=== PATIENT | male | born 1990 | race Caucasian/White ===

== ENCOUNTER 2024-05-16 13:29 | Outpatient (RCR) | payer OTHER, SELFPAY ==
--- NOTE | 2024-05-16 15:06 | OTOPEVDC ---
Assessment and note entered by Clem Mccain, OTR/Nora, CHT Evaluation Information Assessment Status Evaluation Subjective Information Patient referred for w/c evaluation. Diagnoses include EDS, generalized weakness, and osteoarthritis. Please refer to scanned mobility evaluation form for details. Reported Pain Level Pain Score 10: Self Report Assessment OT Clinical Summary Patient requires an ultra light weight wheelchair. Requiring seating and positioning not available on K1-K4 chairs, including cog adjustment for stability and adjustable axles for more functional reach of wheels. A manual wheelchair is necessary because this patient is unable to safely participate in or complete ADLs, household tasks, or household mobility activities in a timely manner with an optimally fitted cane or walker due to muscle weakness, pain, and fatigue. Without the use of a manual wheelchair the patient would be spending much of his day in bed, unable to have energy to take care of himself or household tasks . With a manual chair, he will be able to safely perform household mobility and participate in MRADLs. Patient is willing, able, and capable to use recommended equipment. With his history of EDS , he is prone for falls, joint dislocations, and further injury. This will further help prevent falls, injury, and further disability. Plan of Care OT Services Indicated No
== END 2024-05-16 15:38 | disposition home or self-care (01) ==
LOC: ANHGOSHOT 13:29
DX: Z46.89 Encounter for fitting and adjustment of other specified devices (principal); Q79.60 Ehlers-Danlos syndrome, unspecified; R53.1 Weakness; M15.8 Other polyosteoarthritis
CPT/HCPCS: 97167

== ENCOUNTER 2024-11-14 08:00 | Outpatient (RCR) | payer OTHER, SELFPAY ==
--- NOTE | 2024-10-19 15:23 | STOPEVAL1 ---
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 Patient also reports a history of PTSD between issues at home growing up and bullying related to his medical conditions. When asked about the term selective mutism, patient reports that there are times when patient freezes and cannot speak, unable to make voicing, and that he has no control over his vocal loudness , and as a result of the Tourette's, he makes uncontrollable noises, facial grimaces, and uses scripts such as repeated words and movie lines. Patient reports he has a difficult time talking through the strain on his vocal cords, and that over time in a conversation, his voice may or lose its loudness. Patient brought a tablet of some kind with him, he said to facilitate communication, however, he never used it during this session. Patient stated that Dr. Mai suggested Speech Therapy with the possibility of addressing the use of a speaking device or text to talk function for when his voice freezes. Patient's speech and voice were evaluated throughout this session and it was determined that patient must have felt comfortable sharing his struggles as he was able to maintain his voicing throughout this session. There were times when patient's vocal loudness mildly decreased and patient would point out that that was an example of his voice dying or losing the volume/strength however, he never did lose the ability to voice Therapist requested patient to sustain the ah sound and demonstrated the desired response; on four attempts, patient began an ah sound that averaged 74 decibels however, he could not sustain beyond one second as this triggered a cough reflex. Patient was able to count from 1-19 in seven seconds at 69 decibels, and then a cough reflex was triggered which stopped the task. Patient reached a high frequency, or hertz (hz), of 176 hz, and a low frequency of 83 hz. Neither range triggered a loss of voice or a cough. Patient orally read a story at 71 decibels, average loudness, with a frequency range of 81-108 hz. Based on patient's description of freezing when speaking to groups or authority figures, and his triggering of the cough reflex when voluntarily trying to make himself perform, direct Speech Therapy is suggested to address strategies to work through voicing when in unfamiliar, group, or stressful situations. He will be seen twice weekly for two weeks for instruction and use of voicing/ speaking strategies in structured situations mimicking situations of concern. During these sessions, use of a text to talk device will be discussed. Thank you for this referral. Plan of Care Interventions Treatment of Voice ST Services Indicated Yes Treatment Frequency and 2xwk/4 visits Duration These treatments will address the objective and functional deficits as defined above. The patient will be advanced safely and appropriately in order for the patient to progress towards his/her prior level of function. Additional exercises will be introduced and as well as a comprehensive home exercise program upon discharge, if needed, ?to ensure carryover of functional gains achieved in the clinic. This treatment plan has been reviewed and agreement upon by the patient.
--- NOTE | 2024-11-14 09:56 | STOPDC ---
Assessment and note entered by Kasey Garcia MUSIC GRAPHER Evaluation Information Assessment Status Discharge Reported Pain Level Pain Score 0: Self Report Assessment ST Clinical Summary DISCHARGE SUMMARY AND TREATMENT SUMMARY This patient has been seen for four visits of Speech Therapy with focus on improving both voicing and regulating vocal loudness. Initially patient reported that he has selective mutism, that it is difficult for him to speak in front of strangers, but he also reported that when he speaks, speaking triggers tics, facial and head movements and involuntary sounds and words secondary to diagnosis of Tourette Syndrome. 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 and therefore wears glasses that reduce his sensitivity to the lights in the therapy room. During our sessions, patient was instructed in the use of a vocal hygiene program to eliminate any negative behaviors affecting his voice but also to encourage positive behaviors such as increased intake of water and use of humidifier. Patient indicated that he noted the areas of weakness and has worked at improving them, including increasing hydration, reducing loud singing with vocal noises that can irritate the throat, and reducing whispering as a way to save his voice. He was instructed in use of relaxation and breathing techniques to use in home program but also to incorporate an easy breathing method when stressed in order to reduce tension in the vocal cords and whole body. He voiced understanding and also has incorporated those techniques into his daily activities. Finally, he was instructed in the use of laryngeal adduction strengthening exercises to improve the strength and vocal quality of the voice without overdoing it and straining/fatiguing the voice. He also has incorporated these into his routine but stated one particular exercise triggers a tic; therapist requested him to discontinue that particular exercise. Last session, patient demonstrated how typing his thoughts on a mandel pad connected to blue CISSOID that printed the words onto a phone with a black screen and white print without speaking or making eye contact with therapist not only reduced but eliminated any form of tic including head movement, nonverbal noises, and involuntary speech /curse words. Patient typed several pages of information independently and in response to therapist's questions with none of the above- mentioned behaviors present. Today patient participated in tasks to simulate interaction with others however verbally, tics remained present and several were triggered for no apparent reason (i.e. not directly due to eye contact, the use of /f/ in words, or stressful conversation). TREATMENT SUMMARY 11/14: Throughout our sessions, it has become obvious that when patient is speaking, certain sound productions, words, and movements trigger patient to jerk his head to the side. The main sound that was very consistent was when patient or therapist used the /f/ sound in a word. Additionally, when therapist was attempting to teach the patient the yawn-sigh technique to reduce vocal and temporo- mandibular tension this date, therapist's yawn immediately triggered patient's head to jerk to the side. Patient admitted to much TMJ tension and also stated that when he attempts to yawn, head movement is triggered. Patient showed therapist a speaking device, the Mobile Accord Lightwriter SL50, that looks like a mini-typewriter that uses type-to- speech using an e-ink screen which does not trigger Tourette symptoms. Patient would type sentences or paragraphs and then press a button and the device would speak the information aloud. Patient's own phone does not have this capability. Therapist is going to request patient's physician write a script for this device and pursue obtaining the device for the patient as both last session and today's session there was an obvious decrease in tics and other perceived negative behaviors when the patient was typing. Patient is being discharged from skilled Speech Therapy at this time with voicing goals achieved. Plan of Care ST Services Indicated No
--- NOTE | 2024-11-14 13:02 | OPREHPOC ---
Outpatient Therapy Plan of Care This is a Multidisciplinary Plan of Care that may contain components documented by all disciplines (PT, OT, and ST.) ST Problem 1 ST Problem #[address] Goal 1 Goal / Goal Update 1. Patient will voice and demonstrate understanding of anatomy and physiology related to voicing and communication impairment, treatment plan, home exercise program, compensatory programs , and risks and benefits related to direct Speech Therapy tasks. MET. Target Visit [address] Problem [address] ST Problem #[address] Goal 1 Goal / Goal Update 1. Patient will voice good understanding of vocal hygiene program and tasks to increase the strength of the voice without abusing the voice. MET. 2. Patient will participate in tasks to increase the strength of the voice while maintaining appropriate use of the vocal cords while avoiding over-use or abusive voice behaviors 90% of the time. MET. 3. Patient will participate in role-playing tasks to trigger loss of voice yet use strategies to maintain voicing 70% of the time. MET. Target Visit [address] Goal 2 Goal / Goal Update 1
== END 2024-11-16 10:45 | disposition home or self-care (01) ==
LOC: ANHST 08:00
PROVIDERS: PCP Internal Medicine; Visit Provider Internal Medicine
DX: F94.0 Selective mutism (principal); F95.2 Tourette's disorder
CPT/HCPCS: 92507; 92522

== ENCOUNTER 2024-12-13 11:17 | Emergency (ER) | payer OTHER, SELFPAY ==
--- NOTE | ~2024-12-13 | CT_ITS ---
EXAMINATION: CTA chest abdomen pelvis DATE: 12/13/2024 17:49 INDICATION: Chest pain, hx of ehlos danlos . TECHNIQUE: Computed tomography angiography of the chest, abdomen, and pelvis was performed with 100 m L Omnipaque-350 intravenous contrast in the arterial phase. Automated exposure control and iterative reconstruction technique were employed. The dose-length product was 2001.41 mGy-cm. COMPARISON: X-ray chest, same date FINDINGS: CHEST: Thoracic aorta: No significant dilation. No dissection. Lung parenchyma and airways: Lungs and airways are clear. Thoracic inlet, axillae and chest wall: No thyroid or soft tissue mass. No axillary lymphadenopathy. Mediastinum: No mass or lymphadenopathy. Heart and pericardium: Normal heart size. No pericardial effusion. Coronary artery calcifications: Mild. Pleura: No effusion or mass. Thoracic bones: No acute osseous finding in the chest. ABDOMEN/PELVIS: Liver: Right and left lobe subcentimeter hypodensities likely representing cysts or hemangiomas. Biliary/Gallbladder: Gallbladder is normal. No bile duct dilation. Pancreas: No mass or duct dilation. Spleen: Normal. Adrenals:No mass. Kidneys: No suspicious mass, obstructing stone, or hydronephrosis. GI tract: No small or large bowel dilation. Normal appendix. Diverticulosis without diverticulitis. Mesentery/Peritoneum: No ascites, mass, or free air. Retroperitoneum: No mass . No aneurysm, dissection, or severe branch vessel stenosis. Pelvis: Pelvic organs are within normal limits Soft Tissues: Soft tissues and body wall unremarkable. Abdominopelvic bones: No acute osseous finding in the abdomen/pelvis. Multilevel lumbar degenerative disc disease, severe at L5-S1. Severe right L5-S1 neural foraminal narrowing secondary to degenerati ve changes. Moderate central canal narrowing at L3-4 secondary to degenerative changes. IMPRESSION: No acute finding in the chest, abdomen, or pelvis. Reviewed, dictated and finalized at location K. UCT TESTER F[employer]ERGL[employer]
--- NOTE | ~2024-12-13 | XR_ITS ---
EXAMINATION: XR chest 2V DATE: 12/13/2024 12:58 INDICATION: Chest pain. Shortness of breath. TECHNIQUE: Frontal and lateral views of the chest were obtained. COMPARISON: None. FINDINGS: There is no pneumonia, pleural effusion, or pneumothorax. The heart size is normal. IMPRESSION: 1. No acute cardiopulmonary disease. Reviewed, dictated and finalized at location A. TEACHER
[2024-12-13 11:21] VITALS: BP 157/95; PULSE 109; RESP 20; TEMP 36.4; O2SAT 96
--- NOTE | 2024-12-13 11:25 | ECG_ITS ---
Test Date: 2024-12-13 11:28:58 Measurements Intervals [place] Rate: 99 P: 49 MD: 160 QRS: 21 QRSD: 91 T: 33 QT: 329 QTc: 424 Interpretive Statements SINUS RHYTHM NONSPECIFIC T-WAVE ABNORMALITY No previous ECG available for comparison Electronically Signed On 12-13-2024 16:09:12 GOLF CART MAKER by Loly Howard M.D.
[2024-12-13 11:40] LABS: Basophils Absolute Auto 0.1 K/mm3 (0.0-0.1); Basophils Percent Auto 0.7 % (0.2-1.2); Eosinophils Absolute Auto 0.2 K/mm3 (0-0.3); Eosinophils Percent Auto 2.8 % (0-4.4); Hematocrit 48.9 % (42.0-52.0); Hemoglobin 17.4 g/dL (14.0-18.0); Immature Granulocyte Absolute 0.02 K/mm3 (0.00-0.031); Immature Granulocyte Percent A 0.3 % (0-0.5); Lymphocytes Absolute Auto 2.13 K/mm3 (0.9-3.2); Lymphocytes Percent Auto 30.1 % (18.3-44.2); Mean Corpuscular HGB Conc 35.6 g/dl (32-36); Mean Corpuscular Hemoglobin 30.4 pg (26-34); Mean Corpuscular Volume 85.3 fl (80-100); Mean Platelet Volume 11.1 fl (7.4-10.4); Monocytes Absolute Auto 0.7 K/mm3 (0.1-0.6); Monocytes Percent Auto 9.3 % (2.6-8.5); Neutrophils Percent Auto 56.8 % (45.5-73.1); Platelet Count Result 222 k/mm3 (150-375); Red Blood Count 5.73 M/mm3 (4.6-6.20); Red Cell Distribution Width 14.5 % (11.5-14.5); White Blood Count 7.1 K/mm3 (4.5-10.0)
[2024-12-13 11:52] LABS: Alanine Aminotransferase 49 U/L (6-50); Albumin Level 4.6 g/dL (3.5-5.1); Alkaline Phosphatase 125 U/L (38-126); Anion Gap 13 mmol/L (4-12); Aspartate Amino Transferase 37 U/L (17-59); Bilirubin,Total 0.7 mg/dL (0.2-1.3); Blood Urea Nitrogen 8 mg/dL (9-20); Calcium 8.7 mg/dL (8.4-10.2); Carbon Dioxide 18 mmol/L (22-30); Chloride 108 mmol/L (98-107); Estimated CRCL calculation 164 ml/min; Estimated Glomerular Filt Rate > 60; Glucose 109 mg/dL (65-110); Lipase 43 U/L (23-300); Sodium 139 mmol/L (137-145)
[2024-12-13 12:02] LABS: Prothrombin Time 13.8 Seconds (11.1-14.7)
[2024-12-13 12:03] LABS: Partial Thromboplastin Time 22.7 Seconds (22.3-36.8); Troponin I < 0.012 ng/mL (0.000-0.034)
--- OUTSIDE RECORDS SUMMARY | 2024-12-13 12:37 | XMS_ITS ---
Author Organization [facility] Address [address] [place] [address] Care Team Providers Care Panel Installer Name Role Phone Danie Mai Primary Care Provider [phone] REASON FOR VISIT Tele visit Social History Sex Assigned At : Social History Observation Description Sex Assigned At Male Encounters Encounter Location Date Provider Diagnosis [address] [place] [address] 11/20/2024 Danie Mai Plan Of Treatment No Information Progress Notes * ESDRASMichelOB:[birth year] (34 yo M)Acc No.[id number]:11/20/2024 Patient:?Noble DEWITT :1990???Age:34 Y???Sex:Male Address:[address], [place], [address] * true * Date:? 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
--- OUTSIDE RECORDS SUMMARY | 2024-12-13 12:38 | XMS_ITS | Encounter Summary ---
[facility] Address [address] [place] [address] Phone Care Team Providers Care Drafter Detail Name Role Phone Ab Erwin MD Primary Care Provider + Álvaro Angelo MD Primary Care Provider [phone] Unknown, Notinfile Primary Care Provider Unavail able Encounter Details Date Type Department Care Team (Late st Contact Info) Description 02/01/2023 Orders Only [facility] [address] [place] [address] Scanning, Provider Social History Tobacco Use Types Packs/Day Years Used Date Smoking Tobacco: Never Assessed Sex and Gender Information Value Date Recorded Sex Assigned at Not on file Legal Sex Male 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 Gender Identity Not on file Sexual Orientation Not on file documented as of this encounter Plan of Treatment Not on file documented as of this encounter Procedures Procedure Name Priority Date/Time Associated Diagnosis Comments SCAN - LABS 02/01/2023 documented in this encounter Results * SCAN - LABS (02/01/2023) us Provider Scanning Final Result documented in this encounter Visit Diagnoses Not on filedocumented in this encounter Care Teams Drafter Detail Relationship Specialty Start Date End Date Ab Erwin MD PCP - General Otolaryngology 09/02/17 03/11/23 Álvaro Angelo MD PCP - General Internal Medicine 03/12/23 08/29/24 Unknown, Notinfile PCP - General 11/21/24 documented as of this encounter
--- OUTSIDE RECORDS SUMMARY | 2024-12-13 12:38 | XMS_ITS | Clinical Summary ---
Author Organization [facility] Address [address] [place] [address] Phone Care Team Providers Care Outside Laborer Name Role Phone Unavailable Primary Care Provider Unavailabl e Allergies Active Allergy Reactions Criticality Noted Date Comments Clarithromycin Hives High 11/09/2019 Medications flu vaccine quadrivalent 2019-, 6 mo+,,PF, (Flulaval Quad , PF,) 60 mcg (15 mcg x 4)/0.5 mL Syringe syringe TO BE ADMINISTERED BY PHARMACIST. 0.5 mL 0 9:08 AM CDT 09/14/20 20 Active lithium carbonate (ESKALITH IR) 600 mg Capsule Take 1 Capsule (600 mg) by mouth 2 times daily. 60 Capsule 09/17/20 20 Active lithium carbonate (ESKALITH IR) 300 mg Capsule Take 1 capsule (300 mg) by mouth in the morning and 2 capsules (600 mg) daily at bedtime. 90 Capsule 0 9:29 AM AUTOMOBILE AND PROPERTY UNDERWRITER 10/30/20 20 Active busPIRone (BUSPAR) 15 mg Tablet Take 15 mg by mouth 2 times daily. Active testosterone enanthate (Xyosted) 100 mg/0.5 mL Auto-Injector Inject 100 mg by subcutaneous injection every 7 days in the morning 6 mL 2 1 2:35 PM CDT 01/03/20 21 Active cyanocobalamin (VITAMIN B-12) 1,000 mcg/mL Solution Inject 1 mL (1,000 mcg) subcutaneously every 7 days in the morning. 4 mL 2 1 4:21 PM CDT 04/21/20 21 Active hydrOXYzine pamoate (VISTARIL) 25 mg capsule Take 1 Capsule (25 mg) by mouth 2 times daily as needed. 60 Capsule 1 4:51 PM CDT 05/22/20 21 Active busPIRone (BUSPAR) 15 mg Tablet Take 1 Tablet (15 mg) by mouth daily. 90 Tablet 1 2:35 PM CDT 06/12/20 21 Active hydrOXYzine pamoate (VISTARIL) 25 mg capsule Take 1 Capsule (25 mg) by mouth 2 times daily as needed. 60 Capsule 1 2:35 PM CDT 06/12/20 21 Active testosterone enanthate (Xyosted) 50 mg/0.5 mL Auto-Injector Inject 50 mg by subcutaneous injection on weeks 2 and 4 of each month along with Xyosted 100mg to make total of 150mg on weeks 2 and 4. 2 mL 2 1 12:19 PM CDT 06/17/20 21 Active testosterone enanthate (Xyosted) 100 mg/0.5 mL Auto-Injector Inject 100 mg by subcutaneous injection every 7 days. (Weeks 1and 3 inject 100mg and weeks 2 and 4 inject 100mg along with Xysted 50mg). 6 mL 1 1 12:19 PM CDT 06/17/20 21 Active FLUoxetine (PROzac) 40 mg capsule Take 1 Capsule (40 mg) by mouth daily. 30 Capsule 1 12:19 PM CDT 07/22/20 21 Active testosterone enanthate (Xyosted) 50 mg/0.5 mL Auto-Injector Inject 50 mg by subcutaneous injection along with Xyosted 100mg to make total of 150mg every week. 6 mL 1 1 4:20 PM CDT 06/17/20 21 Active Syringe with Needle, Disp, (BD Luer-Nick Syringe) 3 mL 25 gauge x 1 Syringe To inject testosterone once weekly. 12 Each 2 10/02/20 Active Needle, Disp, 18 G (Disposable Huguenot) 18 gauge x 1 Needle To withdraw testosteroe once weekly. 12 Each 1 10/02/20 21 Active Syringe with Needle, Disp, 3 mL 25 gauge x 1 Syringe Use to inject testosterone once weekly. 12 Each 2 11/11/20 21 Active Insulin Syringe-Needle U-100 1 mL 31 gauge x 03/30 Syringe USE TO INJECT B12 ONCE WEEKLY. 12 Each 1 11/11/20 Active Needle, Disp, 18 G (Disposable Huguenot) 18 gauge x 1 Needle Use to withdraw testosterone once weekly. 12 Each 1 11/11/20 21 Active amLODIPine (NORVASC) 5 mg tablet Take 1 Tablet (5 mg) by mouth daily. 30 Tablet 5 04/21/20 22 Active famotidine (PEPCID) 20 mg tablet Take 1 Tablet (20 mg) by mouth daily. 60 Tablet 5 04/21/20 22 Active Active Problems Patient Care Coordination No te Formatting of this note migh t be different from the original. DME: [facility] Fax#: [phone] Problem Noted Date Diagnosed Date Morbid obesity with body mass index of 40.0-49.9 08/28/2020 Immunizations Immunization Administration Dates Next Due (IntegralReach)(12 YR UP) COVID-19 VACCINE - EMERGENCY USE AUTHORIZATION, MRNA, [id number](PF) 30 MCG/0.3 ML IM SUSP 11/27/2020,11/06/2020 INFLUENZA VACCINE QUADRIVALE NT 3 YR UP PF IM 09/14/2020 Influenza Seasonal Unspecifi ed Formulation IM 09/14/2020,09/14/2019,08/29/2019 Family History Medical History Relation Name Comments Arthritis-rheumatoid Father Heart Disease Father COPD Maternal Grandfather Lung Cancer Maternal Grandfather COPD Maternal Grandmother Bipolar Disorder Mother Hypertension Mother Heart Disease Paternal Grandfather COPD Paternal Grandmother Relation Name Status Comments Father Alive Maternal Grandfather Maternal Grandmother Mother Alive Paternal Grandfather Paternal Grandmother Social History Tobacco Use Types Packs/Day Years Used Date Smoking Tobacco: Never Smokeless Tobacco: Never Alcohol Use Standard Drinks/Week Comments Never 0 (1 standard drink = 0.6 oz pur e alcohol) Sex and Gender Information Value Date Recorded Sex Assigned at Not on file Legal Sex Male 4:09 PM CDT Gender Identity Not on file Sexual Orientation Not on file Last Filed Vital Signs Vital Sign Reading Time Taken Comments Blood Pressure 136/78 12/25/2020 8:26 AM AUTOMOBILE AND PROPERTY UNDERWRITER Pulse 80 12/25/2020 8:26 AM AUTOMOBILE AND PROPERTY UNDERWRITER Temperature 36.2 ??C (97.2 ??F) 12/25/2020 8:26 AM CS T Respiratory Rate 16 12/04/2020 2:41 PM AUTOMOBILE AND PROPERTY UNDERWRITER Oxygen Saturation 96% 08/28/2020 3:25 PM CDT Inhaled Oxygen Concentration - - Weight 161 kg (355 lb) 12/04/2020 2:41 PM AUTOMOBILE AND PROPERTY UNDERWRITER Height 198.1 cm (6' 6 ) 12/04/2020 2:41 PM AUTOMOBILE AND PROPERTY UNDERWRITER Body Mass Index 41.02 12/04/2020 2:41 PM AUTOMOBILE AND PROPERTY UNDERWRITER Plan of Treatment Health Maintenance Due Date Last Done Comments DTAP/TDAP/TD VACCINES (1 - Tdap) 2007 HEPATITIS B VACCINES (1 of 3 - 19+ 3-dose series) 2007 Pre-Diabetes and Diabetes Screening 07/12/2023 07/12/2020 INFLUENZA VACCINE (#1) 2024 0, 09/14/2020, 08/20/2020, Additional history exists COVID-19 Vaccine ( season) 2024 11/27/2020, 11/06/2020 HPV VACCINES Aged Out No longer eligi ble based on patient's age to complete this topic Procedures Procedure Name Priority Date/Time Associated Diagnosis Comments HEMOGLOBIN A1C Routine 07/12/2020 7:23 AM CDT 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 [facility] EST. AVG GLUCOSE, A1C 105 mg/dL 07/12/2020 8:43 AM CDT [facility] [employer] [facility] Blood Venipuncture / Unknown 07/12/2020 7:23 AM CDT 07/12/2020 7:23 AM CDT Narrative [facility] [employer] [facility] - 07/12/2020 8:43 AM CDT HGB A1C INTERPRETATION NORMAL: ? <5.7% PRE-DIABETES: 5.7 - 6.4% DIABETES: ? 6.5% OR GREATER us Aydin Cortez MD CHEMISTRY ORDERABLES Final Resu lt [facility] CLIA# [id number] [place] [address] from Last 3 Months or Most Recently Relevant to Health Maintenance Insurance [facility] MEDICAID RX CANALES PLANS (INTERNAL) [facility] RX [employer] Commercial RX [facility]
--- OUTSIDE RECORDS SUMMARY | 2024-12-13 12:38 | XMS_ITS | Clinical Summary ---
Author Organization [facility] Address [address] [place] [address]. [place], [place] [address] [place] [address] Care Team Providers Care Wardsperson Name Role Phone Unavailable Primary Care Provider Unavailabl e Allergies Active Allergy Reactions Criticality Noted Date Comments Clarithromycin Hives 11/09/2019 Medications busPIRone 30 MG tablet buspirone 30 mg tablet Active [place] Carbonate 600 MG Cap lithium carbonate 600 mg capsule 0 Active hydrOXYzine 25 MG capsule hydroxyzine pamoate 25 mg capsule Active buPROPion XL 150 MG 24 hr tabletIndication s:Generalized anxiety disorder Take 1 tablet (150 mg total) by mouth daily. 90 tablet 1 1 Active amLODIPine 10 MG tabletIndication s:Essential hypertension Take 1 tablet (10 mg total) by mouth daily. 90 tablet 1 1 Active metoprolol tartrate 25 MG tabletIndication s:Essential hypertension Take 1 tablet (25 mg total) by mouth 2 (two) times daily. 60 tablet 3 1 Active Active Problems Problem Noted Date Diagnosed Date Morbid obesity with body mas s index of 40.0-49.9 (CMS/HCC HHS/HCC) 12/24/2020 Overview (12/24/2020): -Pt has elevated weight with BMI Body mass index is 42.24 kg/m??., and will need to work hard on reducing carbohydrates and total calories. -You may use the free smart phone apps such as [employer] to help track calories and try to reduce by 15% every 4 weeks. -Patient will work on reducing total portion sizes to try to reduce the size of their stomach. -Exercising about 30 minutes every day with cardio work outs. -Avoid regular soda, juices and alcohol. -Recommended limiting GPS foods (Grains, Potatoes, Sugars) as much as possible. Eating food that it is not highly processed and that they can recognize. Eating when they are hungry and not by a time schedule. -Lets aim to have them lose about 1 pound per week and 5 pounds per month. Schizophrenia ([facility]) 12/10/2020 Overview (12/24/2020): -Currently very concerned about possibly having [place]'s disease -Continue with lithium -Follow-up with your psychologist for future appointments Anxiety 12/10/2020 KAILA on CPAP 12/10/2020 Essential hypertension 12/10/2020 Chronic back pain 12/10/2020 Resolved Problems Problem Noted Date Diagnosed Date Resolved Date Hypogonadism in male 02/15/2019 021 Immunizations Name Administration Dates Next Due Dtap (Generic) 07/11/2019 Influenza (Generic) 09/14/2019,08/29/2019 Influenza Adult (Generic) 09/14/2020 PFIZER COVID-19 (ORIGINAL FO RMULATION, PURPLE CAP) mRNA, LNP-S, PF, 30 MCG/0.3 ML DOSE 11/27/2020,11/06/2020 Family History Medical History Relation Comments afib Father ocd Father bipolar Maternal Aunt COPD Maternal Grandfather Lung Cancer Maternal Grandmother Breast Cancer Mother breast bipolar Mother Heart Disease Paternal Grandfather Diabetes Paternal Grandmother Lung Cancer Paternal Grandmother Relation Status Comments Father Alive Maternal Aunt Alive Maternal Grandfather Maternal Grandmother Mother Alive Paternal Grandfather Paternal Grandmother Social History Tobacco Use Types Packs/Day Years Used Date Smoking Tobacco: Never Smokeless Tobacco: Never Tobacco Cessation:Counseling Given: Yes Comments:Dr Alanis Alcohol Use Standard Drinks/Week Comments Yes 0 (1 standard drink = 0.6 oz pur e alcohol) socially AUDIT-C Answer Date Recorded Frequency of Alcohol Consumption Not on file 12/10/2020 Q2: How many drinks containi ng alcohol do you have on a typical day when you are drinking? 1 or 2 12/10/2020 Frequency of Binge Drinking Not on file 11/16 PHQ-2 Answer Date Recorded PHQ-2 Score - If the patient scores above 3, please move on to questions 3-9 0 12/10/2020 Sex and Gender Information Value Date Recorded Sex Assigned at Not on file Legal Sex Male 11:09 AM CDT Gender Identity Not on file Sexual Orientation Not on file Last Filed Vital Signs Vital Sign Reading Time Taken Comments Blood Pressure 140/90 12/24/2020 11:19 AM [employer] Pulse 87 12/24/2020 10:42 AM [employer] Temperature 37.1 ??C (98.7 ??F) 12/24/2020 10:[address] Respiratory Rate 18 12/24/2020 10:42 AM [employer] Oxygen Saturation 99% 12/24/2020 10:42 AM [employer] Inhaled Oxygen Concentration - - Weight 157.4 kg (347 lb) 12/24/2020 10:42 AM [employer] Height 193 cm (6' 4 ) 12/24/2020 10:42 AM [employer] Body Mass Index 42.24 12/24/2020 10:42 AM [employer] Plan of Treatment Health Maintenance Due Date Last Done Comments Annual Physical 1991 PHQ-2 (Physician [place]) 2000 Hepatitis B Vaccines (1 of 3 - 19+ 3-dose series) 2007 COVID-19 Vaccine ( - 2023-2 5 season) 2024 11/27/2020, 11/06/2020 Influenza Adult (#1) 2024 09/14/2020, 09/14/2019, 08/29/2019 PHQ-2 (Physician [place]) 11/15/2024 DTaP, Tdap and Td Vaccines ( 2 - Tdap) 07/11/2029 07/11/2019 Hepatitis C Completed 12/10/2020 HPV Vaccines Aged Out No longer eligi ble based on patient's age to complete this topic Meningococcal B Vaccine Aged Out No l onger eligible based on patient's age to complete this topic Meningococcal Vaccine Aged Out No paola walter eligible based on patient's age to complete this topic Pneumococcal Vaccine: Pediatrics (0 to 5 Years) and At-Risk Patients (6 to 64 Years) Aged Out No longer eligible b ased on patient's age to complete this topic RSV Immunizations Under 20 Months Aged Out No longer eligible b ased on patient's age to complete this topic Procedures Procedure Name Priority Date/Time Associated Diagnosis Comments HEPATITIS C ANTIBODY Routine 12/10/2020 9:09 AM [employer] Need for hepatitis C screening test from Last 3 Months or Most Recently Relevant to Health Maintenance Results * HEPATITIS C ANTIBODY (12/10/2020 9:09 AM [employer]) HEPATITIS C AB NON-REACTI VE NON-REACT TREMAINE 12/10/2020 9:32 PM [employer] [facility] Comment: ANTIBODIES TO HCV NOT DETECTED. DOES NOT EXCLUDE THE POSSIBILITY OF EXPOSURE TO HCV. 12/10/2020 9:09 AM [employer] Ramila Alanis MD LABORATORY Final Result [facility] [address] [place] [address], [place] [phone] [id number] from Last 3 Months or Most Recently Relevant to Health Maintenance [place] [place] [address] [facility]
--- OUTSIDE RECORDS SUMMARY | 2024-12-13 12:38 | XMS_ITS | Patient Health Record ---
Author Organization [facility] Address [address] [facility] [place] [address] [place] [address] Care Team Providers Care Associate Field Service Engineer Name Role Phone GURMEET MARQUEZ Primary Care Provider Aydin Tesfaye Unavailable [phone] Allergies Allergen (clinical drug ingredient) Drug/Non Drug Allergy documented on EMR Reaction Allergy Type Onset Date Status BIAXIN (uncoded) Unknown Allergy Act nilam Gluten Gluten Unknown Allergy Active Reason For Referral No Information Medications Medication SIG (Take, Route, Frequency, Duration) Notes Start Date End Date Status Ibuprofen 800 MG 1 tab(s) orally PRN Unknown busPIRone HCl 30 MG 1 tab(s) orally 2 times a day for 30 day(s) Unknown BD SYRINGE LUER LOCK 1CC 18G - TO DRAW INJECTION NA ONCE A WEEK for 90 DAYS *Please review for potential replacement for e-prescription and drug interaction check* 10/05/2019 Unknown BD SYRINGE 3CC 25G 1 - TO INJECT IM ONCE A WEEK *Please review for potential replacement for e-prescription and drug interaction check* 10/05/2019 Unknown amLODIPine Besylate 5 MG 1 tab(s) orally once a day for 30 day(s) Unknown Bromocriptine Mesylate 5 MG 2 TABS ORALLY QD for 90 DAYS *Please review and pick correct strength-formulati on from Medispan options. If intended option is not shown, discontinue and re-order from Quick Search* Active [place] Carbonate 300 MG 1 cap(s) orally Unknown Latuda 80 MG 1 tab(s) orally once a day Unknown Social History Tobacco Use: Social History Observation Description Date Details (start date - stop date) Never Smoker NA - NA TU Question Answer Notes Are you a smoker never smoker Problems Problem Type SNOMED Code ICD Code Onset Dates Problem Status W/U Status Risk Notes Problem Hyperprolactinemia (906296501) Hyperprolactinemia (E22.1) Active confirmed Problem Adverse effect o f unspecified antipsychotics and neuroleptics, initial encounter (T43.505A) Active confirmed Problem Avitaminosis D (61152695) Avitaminosis D (E55.9) Active confirmed Problem Male hypogonadism (83044293) Hypogonadism in male (E29.1) Active confirmed Problem Lipid screening (445653042) Lipid screening (Z13.220) Active confirmed Problem Diabetes mellitus screening (958882889) Screening for diabetes mellitus (Z13.1) Active confirmed Plan Of Treatment Pending Test Test Name Order Date CORTISOL, LC/MS/MS, Saliva, 4 SAMPLES Insurance Providers Payer Name Payer Address Payer Phone Subscriber Number Group Number Insured Name Patient Relationship to Insured Coverage Start Date Coverage End Date [facility] [address] [place] [address] [id number] ROSA DEWITT Self - patient is the insured Medical (General) History Medical History History ICD Code Hypogonadism Schizophrenia Surgical History Surgery Date(Month/Year) Instillation of dilating eye drops to ey e Biopsy of liver Nasal septoplasty Tubes/Ears Hospitalization History Reason Date(Month/Year) See surgical history 4 months after for asthma
--- OUTSIDE RECORDS SUMMARY | 2024-12-13 12:38 | XMS_ITS ---
Author Organization [facility] Address [address] [place] [address] Care Team Providers Care Customer Solutions Representative Name Role Phone Danie Mai Primary Care Provider REASON FOR VISIT Speech Device Social History Sex Assigned At : Social History Observation Description Sex Assigned At Male Encounters Encounter Location Date Provider Diagnosis [address] [place] [address] 11/28/2024 Danie Mai Plan Of Treatment No Information Progress Notes * ESDRASMichelOB:[birth year] (34 yo M)Acc No.[id number]:11/28/2024 Patient:?Noble DEWITT :1990???Age:34 Y???Sex:Male Address:[address], [place], [address] * true * Date:? 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
--- OUTSIDE RECORDS SUMMARY | 2024-12-13 12:38 | XMS_ITS ---
Author Organization [facility] Address [address] [place] [address] Care Team Providers Care Algology Teacher Name Role Phone Danie Mai Primary Care Provider [phone] REASON FOR VISIT follow up Social History Sex Assigned At : Social History Observation Description Sex Assigned At Male Encounters Encounter Location Date Provider Diagnosis [address] [place] [address] 11/20/2024 Danie Mai Plan Of Treatment No Information Progress Notes * Michel DEWITTOB:[birth year] (34 yo M)Acc No.[id number]:11/20/2024 UNLOCKED PROGRESS NOTE Progress Notes Patient:?Noble DEWITT Provider:?Danie Mai :1990???Age:34 Y???Sex:Male Adarsh e:11/20/2024 [address] [facility] Subjective: * Chief Complaints: * ???1. Follow up. * Medical History:? Objective: * Vitals:? Assessment: Plan: * Treatment: * * Electronic signature of Constantine Mai , [id number] on 12/13/2024 at 12:37 PM CUSTOM FEED MILL OPERATOR Sign off status: Pending * Provider:?Danie Mai Date:? Generated for Kiara carlton/[employer]/eTransmitting on:?12/13/2024 12:37 PM CUSTOM FEED MILL OPERATOR
--- OUTSIDE RECORDS SUMMARY | 2024-12-13 12:39 | XMS_ITS | Clinical Summary ---
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 Name Role Phone Unknown, Notinfile Primary Care Provider Unavail able Allergies Active Allergy Reactions Criticality Noted Date Comments Biotin Diarrhea Low 03/16/2023 Clarithromycin Hives High 08/09/2012 Flu Vac,Qval 2013-14 (2-49yrs) Flushing (skin) High 03/16/2023 Haemophilus Influenzae Type B Swelling High 2011 Nsaids (Non-Steroidal Anti-Inflammatory Drug) Shortness of breath High 06/12/2013 Other Shortness of breath High 11/18/2013 [place] Kristen Medications ketotifen (ZADITOR) 0.025 % ophthalmic solutionIndication s:Allergic Conjunctivitis Administer 1 drop into both eyes 2 (two) times a day 5 mL 05/05/20 23 Active hydrOXYzine (VISTARIL) 50 mg capsule Take 1 capsule (50 mg total) by mouth 4 (four) times a day as needed for itching 120 capsule 3 12/03/19 24 Active famotidine (PEPCID) 20 mg tablet Take 1 tablet (20 mg total) by mouth as needed 04/21/20 22 Active amLODIPine (NORVASC) 5 mg tablet TAKE ONE TABLET BY MOUTH EVERY 90 tablet 1 04/04/20 24 Active Additional Information Patient not taking.Reported on 07/25/2024 testosterone cypionate (DEPO-TESTOTERONE) 200 mg/mL injection Inject 1 mL (200 mg total) into the muscle as instructed every 28 (twenty-eight) days 1 mL 3 04/07/20 24 Active Additional Information Patient not taking.Reported on 08/24/2024 bromocriptine (PARLODEL) 5 mg capsule Take 1 capsule (5 mg total) by mouth 2 (two) times a day 60 capsule 1 05/19/20 24 Active busPIRone (BUSPAR) 30 mg tabletIndications: Generalized anxiety disorder Take 1 tablet (30 mg total) by mouth 2 (two) times a day as needed (anxiety) 60 tablet 2 06/02/20 24 Active cloNIDine (CATAPRES) 0.1 mg tabletIndications: Tourettes syndrome TAKE ONE TABLET BY MOUTH TWICE A DAY 60 tablet 08/09/20 24 Active topiramate (TOPAMAX) 100 mg tabletIndications: Tourettes syndrome,Seizure-l yajaira activity (HCC) Take 1 tablet (100 mg total) by mouth 2 (two) times a day 180 tablet 08/24/20 24 025 Active clindamycin (CLEOCIN T) 1 % gel Apply to face/scalp once daily. 180 g 4 08/27/20 24 025 Active Active Problems Problem Noted Date Diagnosed Date Morbid obesity with BMI of 45.0-49.9, adult 07/17 Seizure-like activity 05/25/2024 Assessment & Plan (09/02/2024 11:21 AM CDT): Chronic, uncontrolled. Patient is now selectively mute in office today and only writing on his tablet or typing things out on his phone. Patient attributes this to social anxiety. This is complicated by Tourette's syndrome and seizure-like activity. Admits the Topamax has helped. Patient appears very frustrated and depressed on exam. There are fine tremors noted to bilateral upper extremities, no other neurological deficits on exam though his lenses were not removed for a full eye exam. When I approached the subject of Psychiatry he acted shocked. He has an appointment with a [facility] to start EMDR therapy next week-advised to keep this. Also discussed that the mood changes can be related to the seizure activity. Consulted with Dr. Angelo today in office, we will increase Topamax to 100 mg b.i.d. and advised follow-up with Neurology [facility]. Assessment & Plan (06/12/2024 6:37 PM CDT): Patient has new job at [employer] did not work out well. He had lasted less than a week. 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 Patient advised me that he may camp maintenance supervisor and other personnel challenges he has had with lighting simulating seizure-like activity. It is my understanding this was ignored and he has possible seizure activity.. He had missed 1 dose of Topamax and it did affect his seizure like activity.. This this time in his finding optimal work environment. In the meantime he has a several day study regard narcolepsy have to be seen how much of his problem is from narcolepsy is versus sleep deprivation versus seizure activity. 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 Was [facility] at previous visit and they will get him specialty molded knee braces. Continue tylenol and stretching. Heat/ice as tolerated. Other fatigue 03/14/2024 Assessment & Plan (04/18/2024 8:29 PM CDT): Gradually worsening over the last year. Complicated by mobility disorder, tourette's syndrome, and testosterone deficiency. Labs from February unremarkable except for testosterone level. Multiple hypermobile joints on exam contributing to decreased in mobility which adds to stress/frustration. Sleeping a lot . No other acute findings on exam, vitals stable. Consulted Dr. Angelo in office today who examined patient with me. Patient would benefit from manual wheelchair- will send order to rehab medical. Was recently placed back on lithium for his tourette's. Will see MD at [facility] for continued testosterone replacement. 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 Tourettes syndrome 01/25/2024 Assessment & Plan (09/02/2024 11:22 AM CDT): Chronic, uncontrolled. Patient is now selectively mute in office today and only writing on his tablet or typing things out on his phone. Patient attributes this to social anxiety. This is complicated by Tourette's syndrome and seizure-like activity. Admits the Topamax has helped. Patient appears very frustrated and depressed on exam. There are fine tremors noted to bilateral upper extremities, no other neurological deficits on exam though his lenses were not removed for a full eye exam. When I approached the subject of Psychiatry he acted shocked. He has an appointment with a Counseling Center to start EMDR therapy next week-advised to keep this. Also discussed that the mood changes can be related to the seizure activity. Consulted with Dr. Angelo today in office, we will increase Topamax to 100 mg b.i.d. and advised follow-up with Neurology [facility]. Assessment & Plan (06/03/2024 7:08 PM CDT): Patient reports to Dr. Ash's neurology that his symptoms have improved since going on clonidine Assessment & Plan (04/06/2024 5:16 PM CDT): Patient admits more dysphoric mood with work stress. No acute findings on exam. Will re-start lithium as previously rxd 600mg daily- twice daily. Relaxation techniques as discussed. Assessment & Plan (02/15/2024 12:01 PM CDT): Neurologist notes reviewed. Patient was relieved that the neurologist did confirm Tourette diagnosis. 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 Assessment & Plan (01/03/2024 5:06 PM HOPPER FEEDER): This patient went to visual symptoms treatment center in [facility]. He advised is seen by Dr. Jarrod Carballo Neuro-Ophthalmology he was of no vision syndrome had special classes/Linzess that is completely turned his life around . Patient describes prior to utilizing his glasses he had a lot of impulses coming in through his vision causing lot of confusion agitation for difficulty community sometimes anxiety variety of symptoms. Since utilize in his glasses he can ambulate smoothly without any difficulty. And his incidence of tics have reduced by 90%. Wanted recommendations made by the Neuro-Ophthalmology and visual center the utilize something called barefoot it makes a big difference in his balance. This patient weekly and eventually monthly TeleMed visit to monitor his progress. This patient desperately wants to returned to work. However the problem may be [employer] he would have to wear certain occupational foot were to his disadvantaged in terms of his balance and overall well-being. He will look into places where he can get possible talar made shoes this particular types shoes that may be allowable under the company riding he gets a medical waiver. Medical marijuana use 12/03/2023 Assessment & Plan (12/03/2023 11:19 AM HOPPER FEEDER): Patient has used marijuana as a part of his therapy for Tourette's as well as Nava-Danlos both of these diagnosis or loud under [place] medical marijuana card. Involuntary movements 08/29/2023 Assessment & Plan (12/03/2023 11:16 AM HOPPER FEEDER): Patient is here for follow-up. As I talked to him I am pretty much convinced he does have Tourette syndrome he relates things in childhood describes this however his intensity of involuntary movement frequency has decreased compared to teenage years. Patient also describes some posttraumatic feelings as kids in school elementary school maybe jazz high marked him for his involuntary movements and verbal outburst. Patient discussed me the since his wears over his ears does help with verbal is his opinion it decreases the stimulus that may be causing verbal outburst. He advised me research information regarding Junie color filter lens is his opinion in observation some of the various sunglasses Linzess he is worn have been beneficial to him a describes some some maybe ADH attention deficit. Advised him it is worth taking a trial see if they have benefit him. Has an appointment coming up with Neurology for movement disorders/tics.. Bad experiences with medications in his bias toward taking medications.. Allergy will see him given opinion other testing needs to be done. During his 30-40 minutes of my presence he had 1 facial tic. He has never had verbal tics in my presence even though he describes having when stressed. Patient inquired about CBD/medical marijuana as a benefit for Tourette's. Advised him I will fill out the medical marijuana card . Assessment & Plan (10/14/2023 5:43 PM HOPPER FEEDER): Patient is here for follow-up visit . He is a video of involuntary movements initial impression is having tics however as I talk to him it my impression he has Tourette syndrome which has never been treated. He describes at times having verbal expressions in voluntarily that he finds embarrassing. He is discussed with primary care physicians in the past some of the labrum schizophrenic others have referred him to Psychiatry for anxiety. Patient also describes posttraumatic problems childhood with his Tourette's like behavior. He also has been trying to figure out causes when why and how starting these abnormal movements he does a lot of analyzing and some how things is all stress related at times.. He did go through therapy for posttraumatic and has a meditation and coaching tapes that he <Leyla helps him relax he thinks his effective in some ways with this posttraumatic and possibly movement disorder. He also advised me he is used something called [employer] regarding things in controlled. He describes using EMDR THERAPY THAT HAS HELPED HIS EYE MOVEMENTS. After reviewing his video over himself seeing some abnormal movement here in person in off referring him to [facility][1] neurology Parkinson's and movement disorder division no medications prescribed. Assessment & Plan (08/29/2023 6:01 PM CDT): Patient is concerned regarding involuntary movement grabs his things happening in childhood . Is not clear if there has been increased in frequency. He describes his neck trying to left or jerks left her arms in voluntarily move monitor things is triggering his concern is finds himself biting his lips when he sleeps and ends up bleeding so has not sensation having jerky of his body in night. He is concerned they may be having seizure.. Patient's history of sleep apnea is now describing some components of restless legs syndrome. Plans at this time get an EEG request of his sleep study done at [facility] years ago. Start no medications patient is not in acute distress refer to neurology. Nodule of skin of neck 08/29/2023 Assessment & Plan (08/29/2023 6:02 PM CDT): Patient has what feels like under skin knowledge is tender to touch approximate 2 cm in diameter left-sided neck just above the mid clavicle head other nodules a lymph nodes detected on exam patient has no constitutional illness at this time will observe any changes. Obstructive sleep apnea syndrome 08/29/2023 Assessment & Plan (06/03/2024 7:05 PM CDT): Patient's saw Dr. Ash neurologist May 15 discussed his experience with Mrs. Sleep apnea and previous sleep study he is being referred back to sleep specialist for further evaluation of sleep apnea. Concerns as Dr. Ash explained in his note not this patient is having seizure activity during his sleep. Also concerns regarding having narcolepsy. Assessment & Plan (08/29/2023 6:04 PM CDT): Patient advised me he uses a CPAP several years and benefits from it original sleep study was done at [facility] request release of records. Describing some movement disorders that could be related to sleep 1 how much restless legs syndrome does he have he is describing some myoclonic jerks is related to his sleep pattern 30s complain of biting his lips at night. Primary hypertension 05/04/2023 Assessment & Plan (06/03/2024 7:01 PM CDT): Hypertension well controlled patient is tolerating medications Norvasc 5 mg daily. He is on clonidine which is prescribed for his Tourette's not hypertension. Assessment & Plan (04/18/2024 8:30 PM CDT): Chronic, at goal. BP stable in office today on current therapy. No acute findings on exam. Recent labs unremarkable. Continue amlodipine and clonidine as rxd. and low salt diet. Assessment & Plan (04/06/2024 5:15 PM CDT): Chronic, at goal. BP stable in office today on current therapy. No acute findings on exam. Recent labs unremarkable. Continue amlodipine and clonidine as rxd. and low salt diet. Assessment & Plan (02/15/2024 9:29 AM CDT): Blood pressure remains well controlled patient is tolerating medications Assessment & Plan (07/08/2023 5:24 PM CDT): Hypertension well controlled no change in therapy patient is tolerating medications Assessment & Plan (05/04/2023 5:20 PM CDT): Blood pressure well control on medication amlodipine 5 mg daily no change in therapy Generalized anxiety disorder 05/04/2023 Assessment & Plan (09/02/2024 11:20 AM CDT): Chronic, uncontrolled. Patient is now selectively mute in office today and only writing on his tablet or typing things out on his phone. Patient attributes this to social anxiety. This is complicated by Tourette's syndrome and seizure-like activity. Admits the Topamax has helped. Patient appears very frustrated and depressed on exam. When I approach the subject of Psychiatry he acted shocked. He has an appointment with a Counseling Center to start EMDR therapy next week-advised to keep this. Also discussed that the mood changes can be related to the seizure activity. Consulted with Dr. Angelo today in office, we will increase Topamax to 100 mg b.i.d. and advised follow-up with Neurology [facility]. 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 Specifically referring to Tourette's. He has started medications several months ago in his made significant improvements.. Work environment would be a challenge to him. 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 Patient has expressed his concerns and feelings and challenges with the new job opportunity.. Patient was counseled that of course his job is risk is any job can be was probably safer in terms of ability to cope and complete tasks compared to previous employment he has attempted Assessment & Plan (06/12/2024 6:38 PM CDT): Patients find any combination of BuSpar along with Vistaril does help him considerably regarding his anxiety.. His anxiety remains until the more stable work situation. Assessment & Plan (06/03/2024 7:03 PM CDT): Patient is stable he is on Vistaril as well as BuSpar. 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 Assessment & Plan (02/18/2024 5:36 PM CDT): Patient's anxiety is improved after confirmation from Neurology that he has Tourette syndrome and the improvement in vision not he is diagnosed with snows syndrome and has appropriate glasses Assessment & Plan (01/03/2024 5:08 PM HOPPER FEEDER): Patient's anxiety has decreased significantly since he his seeing the vision symptom treatment facility h has not improved over 90%. 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 is effective in helping with this general anxiety disorder. Assessment & Plan (05/04/2023 5:17 PM CDT): Patient advised me he is having generalized anxiety off problems his amanda score is 10. He advised me that Vistaril has helped him in the past is the success of Vistaril because of antihistamine properties. Started on Vistaril 50 mg can take q.i.d. I recommend he take twice a day to start see how well he tolerates it at this time, may titrate up to the 4 times a day. 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 Complicated by associated fatigue and tourettes. Diffuse tenderness, laxity, and hypermobility as noted above. Discussed proper body mechanics with EDS. Would benefit from lightweight manual wheelchair, will send order to rehab medical. Consulted Dr Angelo in office today, he agrees his mobility is worsening and helped to discuss disability process. Will contact quality assurance/r&d lab technician Maribell to inquire about unemployment note. Advised to use indeed or monster to find a non-physical job he can do while going through the process of applying for disability. Keep follow next month as scheduled. Assessment & Plan (04/06/2024 5:17 PM CDT): Chronic, uncontrolled. C/o left pinky pain as described above. No acute findings on exam. Diffuse tenderness, laxity, and hypermobility as noted above. Discussed proper body mechanics with EDS. Handicap parking form filled out in office today and placed on M.E., RN desk. Assessment & Plan (04/18/2024 3:02 PM CDT): Chronic, uncontrolled. Pain is tolerable but weakness is bothering him especially his knees. See HPI for details. Diffuse tenderness, laxity, and hypermobility as noted above. Patient would benefit from Kafo knee/leg braces, will refer to [facility] clinic in [place] for evaluation. Discussed proper body mechanics with EDS. Assessment & Plan (07/08/2023 5:30 PM CDT): Patient advised me that research he is done and confirmed with his own experience simple things is turning his clothes inside-out makes it of lining of the T short increase his sensitivity and gives him more pain and discomfort. 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 Assessment & Plan (03/24/2023 3:22 PM CDT): Patient today's visit show me photographs left him with joints hyperextended. Did not want to demonstrate this to me on visit because of risk of dislocation which can be very painful. Purpose of this visit today was to fill out forms for his employer. Patient is a temporary play at [employer] and he wants to go full-time meaning greater than 35 hours a week. However with his condition he is asking for certain accommodations the form from [employer] is call my accommodation. Is concerns that ability to use a cane when necessary, some occasions uses stool. Patient's difficulty with steps on some of the locations equipment because of his foot size and risk of damage to his knees. Also has limitations inability ratio over shoulders he is had multiple dislocations shoulders. This description of the forms is not comprehensive. Forms are scanned into the chart. Patient took the original back to his employer hired full-time will then do a FMLA. Assessment & Plan (03/16/2023 6:08 PM CDT): Patient advised me he is had multiple dislocations and lifelong history of joint pain. He also has some swallowing difficulty which he relates to this particular syndrome plans at this time refer him to Rheumatology later this year for further diagnosis a advice on management. Some occasions he walks with a cane. He utilize knee support. Advised me he can continue to work at [employer] in certain disability papers are filled out to allow him certain adaptations at his job agreed to fill out the paperwork once I receive it Encounter for preventive health examination 12/2022 Assessment & Plan (03/16/2023 6:04 PM CDT): 32-year-old gentleman who is a new patient to me. 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 He anticipates going full-time in the next 2 months. His other health problems include mom been D deficiency, low testosterone which is treated through [facility]. He is a large joint 6 ft 4 inch weight 376 lb BMI of 45.77 Vitamin D deficiency 03/16/2023 Assessment & Plan (03/16/2023 6:05 PM CDT): Vitamin-D level was 24. Was done in the past several months a [facility] date of this lab test could not find. Is taking vitamin-D 5000 IU daily has a follow-up lab in 6 months with this particular clinic Low testosterone in male 03/16/2023 Assessment & Plan (04/06/2024 5:14 PM CDT): Used to be on supplement but hasn't taken in almost a year. Total testosterone check 2 days ago was low at 210. Will put patient back on ciprionate supplementation as he was previously on 75mg twice weekly previously. Will re-check in 6-8 weeks. Morbid obesity 03/16/2023 Assessment & Plan (06/03/2024 7:10 PM CDT): Morbidly obese he has a chronic problem patient describes multiple family members very large persons. His BMI is 49 and he describes himself as a small this man in the family. Height 6 ft 3 weight 391 lb. Chronic problem other health problems are higher priority Assessment & Plan (07/08/2023 5:29 PM CDT): Status unchanged Assessment & Plan (05/04/2023 5:19 PM CDT): Patient's weight is down 18 lb over last 6 weeks. Attributes this to change in diet. Diet is focus on avoiding histamines.. He also has is going to use the indication famotidine which is an H2 darlene. He is found this to help him in the past in dealing with this histamine symptoms concerns. Assessment & Plan (03/16/2023 6:06 PM CDT): BMI 45.7 height 6 ft 4 weight 376 lb he is on the smaller side of the min in his family his 2 uncles 1 is 6 ft 11 chronic was over 7 ft tall Immunizations Name Administration Dates Next Due DTaP, Unspecified 07/11/2019 Influenza, Quadrivalent, Spl it, Preservative Free, Intramuscular 09/14/2020 Influenza, Trivalent, IM (MDV) 09/14/2020,2018,08/29/2019 Influenza, Unspecified 07/25/2024(Deferr ed: Allergy),08/29/2023(Deferred: Allergy),09/14/2020,09/14/2019, 019 Tetanus toxoid, adsorbed 11/15/2009 Surgical History Surgery Date Site/Laterality Comments SEPTOPLASTY aage 16 or 17 WISDOM TOOTH EXTRACTION 16 yrs old ADENOIDECTOMY W/ MYRINGOTOMY AND TUBES age 3 or 4 Medical History Medical History Date Comments Photosensitive epilepsy (CMS/HCC) (HCC) Tourette's Nava-Danlos disease with hyper mobility, ambulatory wheelchair user KAILA (obstructive sleep apnea) Generalized anxiety disorder Hypertension Visual snow syndrome History of chicken pox Social History Tobacco Use Types Packs/Day Years Used Date Smoking Tobacco: Never Passive Smoke Exposure: Never Tobacco Cessation:Counseling Given: Not Answered PHQ-2 Answer Date Recorded PHQ-2 Total Score (If total score is 3 or more points, staff should administer the PHQ-9) 0 08/24/2024 Personal Safety Answer Date Recorded Getting School Help Needed Not on file 10/27 Sex and Gender Information Value Date Recorded Sex Assigned at Not on file 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 Gender Identity Not on file Sexual Orientation Not on file Obstetrics History Last Filed Vital Signs Vital Sign Reading Time Taken Comments Blood Pressure 138/78 08/29/2024 9:45 AM CDT Pulse 75 08/29/2024 9:45 AM CDT Temperature 36.2 ??C (97.1 ??F) 08/24/2024 10:38 AM C DT Respiratory Rate 20 08/24/2024 10:38 AM CDT Oxygen Saturation 96% 08/29/2024 9:45 AM CDT Inhaled Oxygen Concentration - - Weight 171.9 kg (379 lb) 08/29/2024 9:45 AM CDT Height 190.5 cm (6' 3 ) 08/29/2024 9:45 AM CDT Body Mass Index 47.37 08/29/2024 9:45 AM CDT Plan of Treatment Health Maintenance Due Date Last Done Comments Hepatitis C Screening 1990 Regular Well Visit/Exam 18-64 03/16/2024 03/16/2023 Covid-19 Vaccine (2023- season) 2024 11/27/2020, 11/06/2020 Depression Screening 08/24/2025 08/24/2024, 03/16/20 23 DTaP/Tdap/Td Vaccine (2 - Tdap) 07/11/2029 07/11/2019 Influenza Vaccine Discontinued 09/14/2020, , 09/14/2020, Additional history exists HPV Vaccines Aged Out No longer eligi ble based on patient's age to complete this topic Hepatitis B Screening Discontinued Pneumococcal vaccine <65 Aged Out No longer eligible based on patient's age to complete this topic Insurance [facility] Care Teams Auto Mechanic Supervisor Relationship Specialty Start Date End Date Unknown, Notinfile PCP - General 11/21/24
--- OUTSIDE RECORDS SUMMARY | 2024-12-13 12:39 | XMS_ITS | Referral Summary ---
Author Organization [facility] Address [address] [place] [address] Care Team Providers Care Knowledge Management Advisor Name Role Phone Unknown, Notinfile Primary Care Provider Unavail able Allergies Active Allergy Reactions Criticality Noted Date Comments Biotin Diarrhea Low 03/16/2023 Clarithromycin Hives High 08/09/2012 Flu Vac,Qval 2013-14 (2-49yrs) Flushing (skin) High 03/16/2023 Haemophilus Influenzae Type B Swelling High 2011 Nsaids (Non-Steroidal Anti-Inflammatory Drug) Shortness of breath High 06/12/2013 Other Shortness of breath High 11/18/2013 [place] Kristen Medications ketotifen (ZADITOR) 0.025 % ophthalmic [...] PM CDT): Patient has new job at [employer] did not work out well. He had lasted less than a week. 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 Will see MD at [facility] for continued testosterone replacement. Assessment [...] blurriness.. Assessment & Plan (01/03/2024 5:06 PM SECURITY AMBASSADOR): This patient went to visual symptoms treatment center in [facility]. He advised is seen by Dr. Jarrod [...] 12/03/2023 Assessment & Plan (12/03/2023 11:19 AM SECURITY AMBASSADOR): Patient has used marijuana as a part of his therapy for Tourette's as well as Nava-Danlos both of these diagnosis or loud under [place] medical marijuana card. Involuntary movements 08/29/2023 Assessment & Plan (12/03/2023 11:16 AM SECURITY AMBASSADOR): Patient is here for follow-up. As I [...] . Assessment & Plan (10/14/2023 5:43 PM SECURITY AMBASSADOR): Patient is here for follow-up visit . [...] advised me he is used something called [email or web address] regarding things in controlled. He describes using [facility] THERAPY THAT HAS HELPED HIS EYE MOVEMENTS. After reviewing his video over himself seeing some abnormal movement here in person in off referring him to [facility] neurology Parkinson's and movement disorder division no [...] request of his sleep study done at [facility] years ago. Start no medications patient is [...] it original sleep study was done at [facility] request release of records. 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 Assessment & Plan (02/18/2024 5:36 PM CDT): Patient's anxiety is improved after confirmation from Neurology that he has Tourette syndrome and the improvement in vision not he is diagnosed with snows syndrome and has appropriate glasses Assessment & Plan (01/03/2024 5:08 PM SECURITY AMBASSADOR): Patient's anxiety has decreased significantly since he his seeing the vision symptom treatment facility h has not improved over 90%. 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 Will contact quality control director Maribell to inquire about unemployment note. Advised [...] from Kafo knee/leg braces, will refer to [facility] clinic in [place] for evaluation. Discussed proper body mechanics with [...] employer. Patient is a temporary play at [employer] and he wants to go full-time meaning greater than 35 hours a week. However with his condition he is asking for certain accommodations the form from [employer] is call my accommodation. Is concerns that [...] me he can continue to work at [employer] in certain disability papers are filled out [...] fractures . 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 He anticipates going full-time in the next 2 months. His other health problems include mom been D deficiency, low testosterone which is treated through [facility]. He is a large joint 6 ft 4 inch weight 376 lb BMI of 45.77 Vitamin D deficiency 03/16/2023 Assessment & Plan (03/16/2023 6:05 PM CDT): Vitamin-D level was 24. Was [facility] in the [facility] date of this lab test could [...] Allergy),08/29/2023(Deferred: Allergy),09/14/2020,09/14/2019, 019 Tetanus toxoid, adsorbed 11/15/2009 Social History Tobacco Use Types Packs/Day Years [...] on file Legal Sex Male 7:55 PM SECURITY AMBASSADOR Gender Identity Not on file Sexual Orientation [...] 08/29/2024 9:45 AM CDT Plan of Treatment Not on file Insurance [facility] Care Teams Knowledge Management Advisor Relationship Specialty Start Date End Date Unknown, Notinfile PCP - General 11/21/24
--- OUTSIDE RECORDS SUMMARY | 2024-12-13 12:39 | XMS_ITS | Encounter Summary ---
Author Organization [facility] Address [address] [place] [address] Care Team Providers Care Construction Carpenter Name Role Phone Danie Mai MD Primary Care Provider [phone] Encounter Details Date Type Department Care Team (Late st Contact Info) Description 2021 Telephone [facility] [address] [place] [address] Javier Lorenzo MD [address] DIV OF ALLERGY/[place] [address] Social History Tobacco Use Types Packs/Day Years Used Date Smoking Tobacco: Never Assessed Sex and Gender Information Value Date Recorded Sex Assigned at Not on file Gender Identity Not on file Sexual Orientation Not on file documented as of this encounter Plan of Treatment Not on file documented as of this encounter Visit Diagnoses Not on filedocumented in this encounter Care Teams Construction Carpenter Relationship Specialty Start Date End Date Danie Mai MD [address] [place] [address] PCP - General 10/29/21 documented as of this encounter
--- OUTSIDE RECORDS SUMMARY | 2024-12-13 12:39 | XMS_ITS ---
Author Organization Unknown Address [address], [place] [id number] Phone Care Team Providers Care Cable Ferryboat Operator Name Role Phone Bulmaro Villeda Attending [facility] e Immunization Immunization Date Status Additional Notes Code Code System COVID-19, mRNA, LNP-S, PF, 3 0 mcg/0.3 mL dose 11/27/2020 Completed 208 CVX COVID-19, mRNA, LNP-S, PF, 3 0 mcg/0.3 mL dose 11/06/2020 Completed 208 CVX DTaP, unspecified formulation 07/11/2019 Completed 107 CVX Social History Type Status Start Date End Date Code Code Syst em Smoking History Unknown if ever smoked [id number] Sex Male Hospital Discharge Instructions Should you have any questions prior to discharge, please contact a member of your healthcare team. If you have left the hospital and have any questions, please contact your primary care physician. Reason For Referral No Data Found Plan of Treatment No Data Found Encounters Encounter Diagnosis Start Date Code Code Sys tem History and physical examination, pre-employment 05/09 [id number] SNOMED-CT Personal Care Team Section Performer Name Performer Role Active Date Inactive Da te
--- OUTSIDE RECORDS SUMMARY | 2024-12-13 12:39 | XMS_ITS | Patient Health Summary ---
Author Organization [facility] Address [address] [place] [address] Care Team Providers Care Graining Machine Operator Name Role Phone Danie Mai MD Primary Care Provider [phone] Note from [facility],non-owned Affiliates and Associated Physician Practices is amultiple site organization consisting of ambulatory clinics and hospital sitesin [place], [place], [place] and [place]. This disclosure is being madepursuant to the Care Everywhere program and may not contain all information available regarding this patient. Last updated 18.[facility] Medications Be aware that medications may not be up to date on this document. Always verify current medications with the patient. No known medications Active Problems No known active problems Social History Tobacco Use Types Packs/Day Years Used Date Smoking Tobacco: Never Assessed Sex and Gender Information Value Date Recorded Sex Assigned at Not on file Gender Identity Not on file Sexual Orientation Not on file Care Teams Graining Machine Operator Relationship Specialty Start Date End Date Danie Mai MD [address] [place] [address] PCP - General 10/29/21
--- OUTSIDE RECORDS SUMMARY | 2024-12-13 12:39 | XMS_ITS | Referral Summary ---
Author Organization [facility] Address [address] [place] [address] Care Team Providers Care Head Of Geography Name Role Phone Danie Mai MD Primary Care Provider [phone] Source Comments [facility],non-owned Affiliates and Associated Physician Practices is amultiple site organization consisting of ambulatory clinics and hospital sitesin [place], [place], [place] and [place]. This disclosure is being madepursuant to the Care Everywhere program and may not contain all information available regarding this patient. Last updated 18.[facility] Medications Be aware that medications may not [...] on file Sexual Orientation Not on file Plan of Treatment Not on file Care Teams Head Of Geography Relationship Specialty Start Date End Date Danie Mai MD [address] [facility] [address] [place] [address] PCP - General 10/29/21
--- OUTSIDE RECORDS SUMMARY | 2024-12-13 12:39 | XMS_ITS | Encounter Summary ---
Author Organization [facility] Address [address] [place] [address] Care Team Providers Care Glass Calibrator Name Role Phone Álvaro Angelo MD Primary Care Provider [phone] Unknown, Notinfile Primary Care Provider Unavail able Encounter Details Date Type Department Care Team (Late st Contact Info) Description 04/20/2024 Orders Only [facility] [address] [place] [phone] Scanning, Provider Social History Tobacco Use Types Packs/Day Years Used Date Smoking Tobacco: Never Passive Smoke Exposure: Never PHQ-2 Answer Date Recorded PHQ-2 Total Score (If total score is 3 or more points, staff should administer the PHQ-9) 0 03/16/2023 Personal Safety Answer Date Recorded Getting School Help Needed Not on file 10/27 Sex and Gender Information Value Date Recorded Sex Assigned at Not on file 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 Gender Identity Not on file Sexual Orientation Not on file documented as of this encounter Plan of Treatment Not on file documented as of this encounter Procedures Procedure Name Priority Date/Time Associated Diagnosis Comments SCAN - LABS 04/20/2024 documented in this encounter Results * SCAN - LABS (04/20/2024) us Provider Scanning Final Result documented in this encounter Visit Diagnoses Not on filedocumented in this encounter Care Teams Glass Calibrator Relationship Specialty Start Date End Date Álvaro Angelo MD PCP - General Internal Medicine 03/12/23 08/29/24 Unknown, Notinfile PCP - General 11/21/24 documented as of this encounter
--- OUTSIDE RECORDS SUMMARY | 2024-12-13 12:39 | XMS_ITS | Clinical Summary ---
Author Organization [facility] Address [address] [place] [address] Care Team Providers Care Railroad Engineer Name Role Phone Danie Mai MD Primary Care Provider [phone] Source Comments [facility],non-owned Affiliates and Associated Physician Practices is amultiple site organization consisting of ambulatory clinics and hospital sitesin [place], [place], [place] and [place]. This disclosure is being madepursuant to the Care Everywhere program and may not contain all information available regarding this patient. Last updated 18.[facility] Medications Be aware that medications may not [...] Orientation Not on file Plan of Treatment Health Maintenance Due Date Last Done Comments HIV SCREENING 2003 HEPATITIS C SCREENING 11/15/2006 DTAP/TDAP/TD VACCINES (1 - Tdap) 2007 HEPATITIS B VACCINE (1 of 3 - 19+ 3-dose series) 2007 COVID-19 VACCINE ( - 2023-2 5 season) 2024 INFLUENZA VACCINE (#1) 2024 DEPRESSION SCREENING 11/15/2024 ZOSTER VACCINE (1 of 2) 2038 HIB VACCINE Aged Out No longer eligi ble based on patient's age to complete this topic HPV VACCINE Aged Out No longer eligi ble based on patient's age to complete this topic MENINGOCOCCAL (Group B) VACCINE Aged Out No longer eligible based on patient's age to complete this topic MENINGOCOCCAL VACCINE Aged Out No paola walter eligible based on patient's age to complete this topic PNEUMOCOCCAL VACCINE Aged Out No long er eligible based on patient's age to complete this topic Care Teams Railroad Engineer Relationship Specialty Start Date End Date Danie Mai MD [address] [place] [address] PCP - General 10/29/21
--- NOTE | 2024-12-13 14:14 | ED_ITS ---
HPI - Chest Pain General Chief Complaint: Chest Pain <Rosa Donohue PA-C - Last Filed: 12/13/24 14:18> Stated Complaint: chest pain last night <Rosa Donohue PA-C - Last Filed: 12/13/24 14:18> Time Seen by Provider: 12/13/24 16:42 <Rosa Donohue PA-C - Last Filed: 12/13/24 14:18> Focused HPI: 34-year-old male with reported history of Tourette's, zenobiachantelirene chin presents to the emergency department for chest pain. Patient states he has had intermittent chest pain for 4 months. Last night while he was meditating he felt a sudden pop and ?explosion? in his chest. [place] like there is fluid going around his heart. States he contacted EMS because his blood pressure was dropping low and he declined transport at that time. Presents today to figure out what is going on. Patient admits to doctor hopping because he has been told several times that he is a conspiracy theorist. States since he received the Covid vaccine his BP has been abnormal. Pt states he cannnot verbally communicate due to his tourettes and is opting to type on his phone to communicate. GENERAL: Well-appearing, well-nourished, and in no acute distress. HEAD: Normocephalic, atraumatic. CHEST: Clear to auscultation. ?No respiratory distress. HEART: Regular rate and rhythm.? NEURO: ?Alert and oriented x3. Patient screened in triage and initial orders placed.? ?Additional care and disposition to be based upon?diagnostic testing and treatment. <Rosa Donohue PA-C - Last Filed: 12/13/24 14:18> Related Data Allergies/Adverse Reactions: Allergies Allergy/AdvReac Type Severity Reaction Status Date / Time influenza virus vaccine Allergy Unknown Unknown Verified 12/13/24 13:23 trivalent soy Allergy Unknown Unknown Verified 12/13/24 13:06 wheat Allergy Unknown Unknown Verified 12/13/24 13:06 bioxin Allergy Unknown Unknown Uncoded 12/13/24 13:06 <LIZ Escobedo Last Filed: 12/13/24 14:18> Exam 2 Narrative: APPEARANCE: Patient is sitting in bed wearing a visor sunglasses and a black mask with Beats headphones on. He has covered in tattoos over most of his body. He is not wearing a gown and is sitting in a pair of shorts. He is typing on a wireless keyboard that is relaying messages to his phone because he says if he speaks history Rx will cause him to have tics. He will not speak Fernanda. Head: atraumatic. EYES: EOMI, NOSE: Atraumatic NECK: Trachea midline RESPIRATORY: No increased rate of breathing clear to auscultation CARDIOVASCULAR: Slightly tachycardic no peripheral edema, extremities warm to touch ABDOMINAL: Non-distended soft nontender no CVA tenderness MUSCULOSKELETAl: No obvious deformities NEURO: Alert. Moving 4/4 extremities SKIN:: Warm, dry. Normal color PSYCHIATRIC: Normal affect <Zeeshan Leiva MD - Last Filed: 12/13/24 18:58> Course Vital Signs Vital signs: Vital Signs Temperature 97.5 F L 12/13/24 11:21 Pulse Rate 109 H 12/13/24 11:21 Respiratory Rate 12/13/24 11:21 Blood Pressure 157/95 H 12/13/24 11:21 Pulse Oximetry 96 12/13/24 11:21 Oxygen Delivery Room Air 12/13/24 11:21 Temperature 97.5 F L 12/13/24 11:21 Pulse Rate 105 H 12/13/24 16:49 Respiratory Rate 12/13/24 16:49 Blood Pressure 168/97 H 12/13/24 16:49 Pulse Oximetry 100 12/13/24 16:49 Oxygen Delivery Room Air 12/13/24 16:37 <Rosa Donohue PA-C - Last Filed: 12/13/24 14:18> Vital Signs Temperature 97.5 F L 12/13/24 11:21 Pulse Rate 109 H 12/13/24 11:21 Respiratory Rate 12/13/24 11:21 Blood Pressure 157/95 H 12/13/24 11:21 Pulse Oximetry 96 12/13/24 11:21 Oxygen Delivery Room Air 12/13/24 11:21 Temperature 97.5 F L 12/13/24 11:21 Pulse Rate 105 H 12/13/24 16:49 Respiratory Rate 12/13/24 16:49 Blood Pressure 168/97 H 12/13/24 16:49 Pulse Oximetry 100 12/13/24 16:49 Oxygen Delivery Room Air 12/13/24 16:37 <Zeeshan Leiva MD - Last Filed: 12/13/24 18:58> MDM - Chest Pain MDM Narrative Medical decision making narrative: -Course: 34-year-old male presenting for low blood pressures in a strange feeling in his chest. Patient has significant health-related anxiety. Broad workup including a CTA chest abdomen pelvis was unremarkable. All of his laboratory studies are within normal limits. He was monitored in our ED and although slightly tachycardic has had normal blood pressures throughout his stay. He is very well-appearing although he has frankly bizarre behavior. Patient was updated on his results and is comfortable being discharged follow-up with primary care physician. Given return precautions. -DDX includes but is not limited to: Anxiety, aortic dissection ACS pneumonia pneumothorax GERD -Co-morbidities complicating care: Ehlos danlos syndrome. <Zeeshan Leiva MD - Last Filed: 12/13/24 18:58> Lab Data Result diagrams: 12/13/24 11:34 12/13/24 11:34 <Rosa Donohue PA-C - Last Filed: 12/13/24 14:18> Labs: Lab Results 12/13/24 12/13/24 12/13/24 Range/Units 11:34 16:25 16:33 WBC 7.1 (4.5-10.0) K/mm3 RBC 5.73 (4.6-6.20) M/mm3 Hgb 17.4 (14.0-18.0) g/dL Hct 48.9 (42.0-52.0) % MCV 85.3 (80-100) fl MCH 30.4 (26-34) pg MCHC 35.6 (32-36) g/dl RDW 14.5 (11.5-14.5) % Plt Count 222 (150-375) k/mm3 MPV 11.1 H (7.4-10.4) fl Immature Gran % (Auto) 0.3 (0-0.5) % Neut % (Auto) 56.8 (45.5-73.1) % Lymph % (Auto) 30.1 (18.3-44.2) % [place] % (Auto) 9.3 H (2.6-8.5) % Eos % (Auto) 2.8 (0-4.4) % Baso % (Auto) 0.7 (0.2-1.2) % Lymph # (Auto) 2.13 (0.9-3.2) K/mm3 [place] # (Auto) 0.7 H (0.1-0.6) K/mm3 Eos # (Auto) 0.2 (0-0.3) K/mm3 Baso # (Auto) 0.1 (0.0-0.1) K/mm3 Abs Immat Gran (auto) 0.02 (0.00-0.031) K/mm3 Absolute Neuts (auto) 4.0 (1.3-6.7) K/mm3 Absolute Nucleated RBC 0.000 (0.0-0.012) K/mm3 Nucleated RBC % 0.0 (0.0-0.2) % PT 13.8 (11.1-14.7) Seconds INR 1.0 APTT 22.7 (22.3-36.8) Seconds Sodium 139 (137-145) mmol/L Potassium 4.0 (3.4-5.0) mmol/L Chloride 108 H (98-107) mmol/L Carbon Dioxide 18 L (22-30) mmol/L Anion Gap 13 H (4-12) mmol/L BUN 8 L (9-20) mg/dL Creatinine 0.90 (0.7-1.3) mg/dL Estim Creat Clear Calc 164 ml/min Estimated GFR > 60 (59 - ) Glucose 109 (65-110) mg/dL Calcium 8.7 (8.4-10.2) mg/dL Total Bilirubin 0.7 (0.2-1.3) mg/dL AST 37 (17-59) U/L ALT 49 (6-50) U/L Alkaline Phosphatase 125 (38-126) U/L Troponin I < 0.012 < 0.012 (0.000-0.034) ng/mL Total Protein 8.0 (6.3-8.2) g/dL Albumin 4.6 (3.5-5.1) g/dL Lipase 43 (23-300) U/L Ethyl Alcohol < 10 (<10) mg/dL <Rosa Donohue PA-C - Last Filed: 12/13/24 14:18> Lab Results 12/13/24 12/13/24 12/13/24 Range/Units 11:34 16:25 16:33 WBC 7.1 (4.5-10.0) K/mm3 RBC 5.73 (4.6-6.20) M/mm3 Hgb 17.4 (14.0-18.0) g/dL Hct 48.9 (42.0-52.0) % MCV 85.3 (80-100) fl MCH 30.4 (26-34) pg MCHC 35.6 (32-36) g/dl RDW 14.5 (11.5-14.5) % Plt Count 222 (150-375) k/mm3 MPV 11.1 H (7.4-10.4) fl Immature Gran % (Auto) 0.3 (0-0.5) % Neut % (Auto) 56.8 (45.5-73.1) % Lymph % (Auto) 30.1 (18.3-44.2) % [place] % (Auto) 9.3 H (2.6-8.5) % Eos % (Auto) 2.8 (0-4.4) % Baso % (Auto) 0.7 (0.2-1.2) % Lymph # (Auto) 2.13 (0.9-3.2) K/mm3 [place] # (Auto) 0.7 H (0.1-0.6) K/mm3 Eos # (Auto) 0.2 (0-0.3) K/mm3 Baso # (Auto) 0.1 (0.0-0.1) K/mm3 Abs Immat Gran (auto) 0.02 (0.00-0.031) K/mm3 Absolute Neuts (auto) 4.0 (1.3-6.7) K/mm3 Absolute Nucleated RBC 0.000 (0.0-0.012) K/mm3 Nucleated RBC % 0.0 (0.0-0.2) % PT 13.8 (11.1-14.7) Seconds INR 1.0 APTT 22.7 (22.3-36.8) Seconds Sodium 139 (137-145) mmol/L Potassium 4.0 (3.4-5.0) mmol/L Chloride 108 H (98-107) mmol/L Carbon Dioxide 18 L (22-30) mmol/L Anion Gap 13 H (4-12) mmol/L BUN 8 L (9-20) mg/dL Creatinine 0.90 (0.7-1.3) mg/dL Estim Creat Clear Calc 164 ml/min Estimated GFR > 60 (59 - ) Glucose 109 (65-110) mg/dL Calcium 8.7 (8.4-10.2) mg/dL Total Bilirubin 0.7 (0.2-1.3) mg/dL AST 37 (17-59) U/L ALT 49 (6-50) U/L Alkaline Phosphatase 125 (38-126) U/L Troponin I < 0.012 < 0.012 (0.000-0.034) ng/mL Total Protein 8.0 (6.3-8.2) g/dL Albumin 4.6 (3.5-5.1) g/dL Lipase 43 (23-300) U/L Ethyl Alcohol < 10 (<10) mg/dL <Zeeshan Leiva MD - Last Filed: 12/13/24 18:58> Discharge Plan Discharge Clinical Impression: Atypical chest pain <Rosa Donohue PA-C - Last Filed: 12/13/24 14:18> Patient Disposition: Home, Self-Care <Rosa Donohue PA-C - Last Filed: 12/13/24 14:18> Condition: Stable <Rosa Donohue PA-C - Last Filed: 12/13/24 14:18> Instructions: Antibiotic Form, Chest Pain (ED) <ILZ Escobedo Last Filed: 12/13/24 14:18> Additional Instructions: You were seen in the emergency department for chest pain. Thankfully your workup with negative we could find no serious problems. Please follow-up with your primary care physician for further management. <Rosa Donohue PA-C - Last Filed: 12/13/24 14:18> Patient Language: Macanese <Rosa Donohue PA-C - Last Filed: 12/13/24 14:18> Follow-up/Referrals: PHYSICIAN NOT ON STAFF,NONSTAFF [Non-Staff] - <Rosa Donohue PA-C - Last Filed: 12/13/24 14:18>
--- NOTE | 2024-12-13 16:26 | ECG_ITS ---
Test Date: 2024-12-13 16:30:27 Measurements Intervals [place] Rate: 106 P: 54 NC: 158 QRS: 25 QRSD: 94 T: 42 QT: 324 QTc: 431 Interpretive Statements SINUS TACHYCARDIA NONSPECIFIC T-WAVE ABNORMALITY ABNORMAL RHYTHM ECG Compared to ECG 12/13/2024 11:28:58 Sinus rhythm no longer present T-wave abnormality still present Electronically Signed On 12-14-2024 11:31:39 HUMAN PERFORMANCE PROFESSOR by Hal Davis M.D.
[2024-12-13 16:49] VITALS: BP 168/97; PULSE 105; RESP 20; O2SAT 100
--- OUTSIDE RECORDS SUMMARY | 2024-12-13 17:02 | XMS_ITS | Patient Health Record ---
Author Organization [facility] Address [address] [place] [address] Care Team Providers Care Forming Machine Operator Name Role Phone Danie Mai Primary Care Provider Allergies Allergen (clinical drug ingredient) Drug/Non Drug Allergy documented on EMR Reaction Allergy Type Onset Date Status pepper, gluten, artichokes, blackberries (uncoded) Unknown Allergy Active Biaxin hives Drug Allergy Active eszopiclone Lunesta Unknown Drug Allergy Activ e Influenza Vac Split Quad Unknown Drug Allergy Active Results Component Value Reference Range Notes Testosterone,Free and Total Reviewed date:09/13/2024 05:17:09 PM Interpretation: Performing Lab:[facility], Phone - [phone], [facility]Report: Testosterone 168 264-916 ng/dL Adult male reference interval is based on a population of healthy nonobese males (BMI <30) between 19 and 39 years old. Regine, et.al. JCEM 2017,102;8933-1917. PMID: 91705354. Free Testosterone(Direct) 8.1 8.7-25.1 pg/mL Prolactin Reviewed date:09/13/2024 05:17:09 PM Interpretation: Performing Lab:[facility] [address] [facility] [place], Phone - [phone], [facility]/Report: Prolactin 15.9 3.9-22.7 ng/mL CBC With Differential/Platel et* Reviewed date:09/13/2024 05:17:09 PM Interpretation: Performing Lab:[facility], Phone - [phone], [facility] Notes/Report: WBC 10.5 3.4-10.8 x10E3/uL RBC 5.30 4.14-5.80 x10E6/uL Hemoglobin 15.1 13.0-17.7 g/dL Hematocrit 46.7 37.5-51.0 % MCV 88 79-97 fL MCH 28.5 26.6-33.0 pg MCHC 32.3 31.5-35.7 g/dL RDW 14.5 11.6-15.4 % Platelets 215 150-450 x10E3/uL Neutrophils 49 Not Estab. % Lymphs 39 Not Estab. % Monocytes 8 Not Estab. % Eos 3 Not Estab. % Basos 1 Not Estab. % Neutrophils (Absolute) 5.2 1.4-7.0 x10E3/uL Lymphs (Absolute) 4.1 0.7-3.1 x10E3/uL Monocytes(Absolute) 0.8 0.1-0.9 x10E3/uL Eos (Absolute) 0.3 0.0-0.4 x10E3/uL Baso (Absolute) 0.1 0.0-0.2 x10E3/uL Immature Granulocytes 0 Not Estab. % Immature Grans (Abs) 0.0 0.0-0.1 x10E3/uL FSH and LH Reviewed date:09/13/2024 05:17:09 PM Interpretation: Performing Lab:[facility] [place], [address] [facility], Phone - [phone], Director - Javier Notes/Report: LH 3.7 1.7-8.6 mIU/mL FSH 3.4 1.5-12.4 mIU/mL Lipid Panel* Reviewed date:09/13/2024 05:17:09 PM Interpretation: Performing Lab:[facility] [place], [address] [facility], Phone - [phone], Director - [facility] Notes/Report: Cholesterol, Total 184 100-199 mg/dL Triglycerides 168 0-149 mg/dL HDL Cholesterol 30 >39 mg/dL VLDL Cholesterol Abel 30 5-40 mg/dL LDL Chol Calc ([facility]) 124 0-99 mg/dL CMP 14 Comprehensive Metabol ic Panel* Reviewed date:09/13/2024 05:17:09 PM Interpretation: Performing Lab:[facility] [place], [address] [facility], [place], Phone - [phone], Director - Javier Notes/Report: Glucose 80 70-99 mg/dL BUN 21 6-20 mg/dL Creatinine 1.09 0.76-1.27 mg/dL eGFR 91 >59 mL/min/1.73 BUN/Creatinine Ratio 19 9-20 Sodium 139 134-144 mmol/L Potassium 4.3 3.5-5.2 mmol/L Chloride 106 96-106 mmol/L Carbon Dioxide, Total 20 20-29 mmol/L Calcium 9.4 8.7-10.2 mg/dL Protein, Total 7.0 6.0-8.5 g/dL Albumin 4.5 4.1-5.1 g/dL Globulin, Total 2.5 1.5-4.5 g/dL Bilirubin, Total 0.3 0.0-1.2 mg/dL Alkaline Phosphatase 99 44-121 IU/L AST (SGOT) 34 0-40 IU/L ALT (SGPT) 52 0-44 IU/L Reason For Referral 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. Letter to patient Clinical Notes [facility], [address], [facility] [address], , Referral Priority Routine Medications Medication SIG (Take, Route, Frequency, Duration) Notes Start Date End Date Status Topiramate 100 MG 1 tablet Orally twic e a day for 30 days Active cloNIDine HCl 0.1 MG 1 tablet Orally twi ce a day for 30 days Active hydrOXYzine Pamoate 50 MG Take 1 capsule by mouth three times daily as needed Orally FOUR TIMES A DAY for 30 days Active Famotidine 20 MG 1 tablet Orally 0 04/21/2022 Active Testosterone Cypionate 200 MG/ML 1 mL Intramuscular EVERY 2 WEEKS 09/29/2024 Active Social History Tobacco Use: Social History Observation Description Date Details (start date - stop date) Never Smoker NA - NA Sex Assigned At : Social History Observation Description Sex Assigned At Male Alcohol Screen (Audit-C) Question Answer Notes Did you have a drink containing alcohol in the p ast year? Yes Tobacco Control (Standard) Question Answer Notes Tobacco use: Nonsmoker Section Notes: Medical History-Was working in the yard, and had a back injury 2 years ago. MRI 2 disc issues. Asthma, Hypothyroidism, Denies head injuries, denies seizures, reports when he was 5-6 years old he was dx. with heat stroke. 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) Active confirmed Problem 812615949 Episodic cluster headache, not intractable (G44.019) Active confirmed POSSIBLY HISTAMINE RELATED Problem Obstructive sleep apnea syndrome (disorder) (89411670) Obstructive sleep apnea (adult) (pediatric) (G47.33) Active confirmed Problem 26413120 Other chronic pain (G89.29) Active confirmed Problem 898024545 Dependence on other enabling machines and devices (Z99.89) 022 Active confirmed Problem Posttraumatic stress disorder (73919576) PTSD (post-traumatic stress disorder) (F43.10) Active confirmed Problem 39256923 Vitamin D deficiency (E55.9) Active confirmed Problem Social anxiety disorder (29908240) Social anxiety disorder (F40.10) Active confirmed Problem 87389759 Chronic fatigue (R53.82) Active confirmed Problem Obesity (677554618) Obesity (BMI 30-39.9) (E66.9) Active confirmed Problem 05193649 Hyperlipidemia, unspecified hyperlipidemia type (E78.5) Active confirmed Problem 95950063 Hypogonadism in male (E29.1) Active confirmed Problem 804665871 Obesity (BMI 35.0-39.9 without comorbidity) (E66.9) Active confirmed Problem 919510927 GERD without esophagitis (K21.9) Active confirmed Problem 53548460 Hypertension, unspecified type (I10) Active confirmed Problem Obesity (072171583) Obesity, unspecified classification, unspecified obesity type, unspecified whether serious comorbidity present (E66.9) Active confirmed Problem 979478976 History of hypothyroidism (Z86.39) Active confirmed Problem 404320254 Low testosterone in male (R79.89) Active confirmed Problem 390860306 Abnormal liver function test (R94.5) Active confirmed MILD ALT ELEVATION Problem Tic disorder (656725) Tic disorder (F95.9) Active confirmed Problem 214789564 Food intolerance in adult (K90.49) Active confirmed HISTAMINE Problem 445952017 Hypermobility of joint (M24.9) Active confirmed Problem 20664710 Generalized hypermobility of joints (M24.80) Active confirmed Problem 661968868 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 Problem 047051017 Abnormal liver function test (R79.89) Active confirmed Vital Signs Heart Rate 92 /min 10/31/2024 Respiratory Rate 18 /min 10/31/2024 Blood pressure diastolic 94 mm Hg 10/31/2024 Oximetry 96 % 10/31/2024 Height 78 in 10/31/2024 Blood pressure systolic 142 mm Hg 10/31/2024 Weight 355 lbs 10/31/2024 BMI 41.02 kg/m2 10/31/2024 Encounters Encounter Location Date Provider Diagnosis [address] [place] [address] 09/07/2024 Danie Mai Hypogonadism in male E29.1 and Medication monitoring encounter Z51.[address] [place] [address] 09/05/2024 Danie Mai EDS (Nava-Danlos syndrome) Q79.60 ; Tic disorder F95.9 ; Hypertension, unspecified type I10 ; GERD without esophagitis K21.9 ; Nutritional counseling Z71.3 ; PTSD (post-traumatic stress disorder) F43.10 ; Selective mutism F94.0 ; Medication monitoring encounter Z51.81 and Hypogonadism in male E29.1 [place] [address] [place] [address] 09/15/2024 Danie Mai Low testosterone in male R79.[address] [address] 09/15/2024 Danie Mai Male hypogonadism E2 9.[address] [address] 09/21/2024 Danie Mai Nutritional counseli ng Z71.3 and Hypertension, unspecified type I10 [address] [address] 09/29/2024 Danie Mai Testosterone deficie ncy in male E29.[address] [address] 10/31/2024 Danie Mai History of hypothyroidism Z86.39 ; Chronic fatigue R53.82 ; Low testosterone in male R79.89 ; Nutritional counseling Z71.3 and Hypertension, unspecified type I10 [address] [address] 09/05/2024 Danie Mai [address] [address] 09/13/2024 Danie Mai [address] [address] 09/29/2024 Danie Mai Low testosterone in male R79.[address] [address] 10/19/2024 Danie Mai [address] [address] 11/13/2024 Danie Mai [address] [address] 11/20/2024 Danie Mai [address] [address] 11/28/2024 Danie Mai [address] [address] 09/15/2024 Danie Mai [address] [address] 09/17/2024 Danie Mai [address] [address] 09/17/2024 Danie Mai [address] [address] 09/22/2024 Danie Mai [address] [address] 09/29/2024 Danie Mai [address] [address] 10/18/2024 [address] Alanner [address] [address] 10/19/2024 Danie Mai [address] [address] 10/19/2024 Danie Mai Assessments Encounter Date Diagnosis (ICD Code) Assessment Notes Treatment Notes Treatment Clinical Notes Section Notes 09/15/2024 Low testosterone in male (ICD-10 - R79.89) Meli Burrell 09/15/2024 10:25:54 AM CDT >Client declined to allow this nurse to give his Testosterone injection as client requested for the injection to be given in his upper thigh. MD Mai notified that client was given the option of Deltoid, Gluteus, or Vastus lateralis but client declined & only wanted the injection in his upper thigh. MD Mai talked with client & client will be going to [place] to have Nurse Concha give his Testosterone injection. Email sent to nurse Concha. TO RECEIVE FIRST 3 INJECTIONS IN OFFICE PRIOR TO 6 WEEK F/U LABS 09/15/2024 Male hypogonadism (ICD-10 - E29.1) 10/31/2024 History of hypothyroidism (ICD-10 - Z86.39) 09/07/2024 Hypogonadism in male (ICD-10 - E29.1) 10/31/2024 Chronic fatigue (ICD-10 - R53.82) 09/29/2024 Low testosterone in male (ICD-10 - R79.89) 09/29/2024 Testosterone deficiency in male (ICD-10 - E29.1) 09/21/2024 Hypertension, unspecified type (ICD-10 - I10) CONTROLLED 09/21/2024 Nutritional counseling (ICD-10 - Z71.3) 09/05/2024 Tic disorder (ICD-10 - F95.9) 09/05/2024 EDS (Nava-Danlos syndrome) (ICD-10 - Q79.60) 09/05/2024 Hypertension, unspecified type (ICD-10 - I10) 10/31/2024 Low testosterone in male (ICD-10 - R79.89) 09/07/2024 Medication monitoring encounter (ICD-10 - Z51.81) 10/31/2024 Nutritional counseling (ICD-10 - Z71.3) 09/05/2024 GERD without esophagitis (ICD-10 - K21.9) 09/05/2024 Nutritional counseling (ICD-10 - Z71.3) 10/31/2024 Hypertension, unspecified type (ICD-10 - I10) DISCUSSED HIS DIET, ACTIVITY, WEIGHT LOSS. 09/05/2024 PTSD (post-traumatic stress disorder) (ICD-10 - F43.10) 09/05/2024 Selective mutism (ICD-10 - F94.0) HE WILL HAVE [employer] CONTACT US. 09/05/2024 Medication monitoring encounter (ICD-10 - Z51.81) 09/05/2024 Hypogonadism in male (ICD-10 - E29.1) 09/15/2024 Other [place] PDMP W/O ISSUES Plan Of Treatment No Information Insurance Providers Payer Name Payer Address Payer Phone Subscriber Number Group Number Insured Name Patient Relationship to Insured Coverage Start Date Coverage End Date [facility] Att Claims Department [address] [place] [phone] [id number] Noble Menjivar Self - patient is the insured 2 [facility] [address] [place] [address] [id number] Noble Menjivar Self - patient is the insured 2 2 [facility] Claims Department [address] [place] [address] [phone] [id number] Noble Menjivar Self - patient is the insured 1 1 [facility] [address] [place] [address] [id number] Noble Menjivar Self - patient is the insured 0 1 [facility] Attn Claims Department [address] [place] [address] [phone] [id number] Noble Menjivar Self - patient is the insured 1 1 [employer] [address] [place] [phone] [id number] Noble Menjivar Self - patient is the insured 2 2 Medications Administered Medication Instructions Date of Administration Dosage Notes Testosterone Cypionate 09/15/2024 200 mg Testosterone Cypionate 09/29/2024 200 mg Medical (General) History Medical History History ICD Code hypothyroidism schizo-affective disorder Surgical History Surgery Date(Month/Year) septum 2007 tubes in ears 1989' eyes dialated 1996 Hospitalization History Reason Date(Month/Year) influenza as a teenager
--- OUTSIDE RECORDS SUMMARY | 2024-12-13 17:02 | XMS_ITS | Clinical Summary ---
Author Organization [facility] Address [address] [place] [address]. [place], [place] [id number] [place] [id number] Care Team Providers Care Plastic Production Machine Setter Name Role Phone Unavailable Primary Care Provider Unavailabl e Allergies Active Allergy Reactions Criticality Noted Date Comments Clarithromycin Hives 11/09/2019 Medications busPIRone 30 MG tablet buspirone 30 mg tablet Active [place] Carbonate 600 MG Cap lithium carbonate 600 [...] the free smart phone apps such as [employer] to help track calories and try to [...] week and 5 pounds per month. 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 -Continue with lithium -Follow-up with your [...] Comments Blood Pressure 140/90 12/24/2020 11:19 AM [facility]OWER Pulse 87 12/24/2020 10:42 AM [facility] Temperature 37.1 ??C (98.7 ??F) 12/24/2020 10:[address] Respiratory Rate 18 12/24/2020 10:42 AM [facility] Oxygen Saturation 99% 12/24/2020 10:42 AM [facility] Inhaled Oxygen Concentration - - Weight 157.4 kg (347 lb) 12/24/2020 10:42 AM [facility] Height 193 cm (6' 4 ) 12/24/2020 10:42 AM [facility] Body Mass Index 42.24 12/24/2020 10:42 AM [facility]OWER Plan of Treatment Health Maintenance Due Date Last Done Comments Annual Physical 1991 PHQ-2 ([facility] [place]) 2000 Hepatitis B Vaccines (1 of 3 - 19+ 3-dose series) 2007 COVID-19 Vaccine ( - 2023-2 5 season) 2024 11/27/2020, 11/06/2020 Influenza Adult (#1) 2024 09/14/2020, 09/14/2019, 08/29/2019 PHQ-2 ([facility] [place]) 11/15/2024 DTaP, Tdap and Td Vaccines ( [...] HEPATITIS C ANTIBODY Routine 12/10/2020 9:09 AM [facility]OWER Need for hepatitis C screening test from Last 3 Months or Most Recently Relevant to Health Maintenance Results * HEPATITIS C ANTIBODY (12/10/2020 9:09 AM [facility]) HEPATITIS C AB NON-REACTI VE NON-REACT TREMAINE 12/10/2020 9:32 PM FR[facility] GROWER [facility] Comment: ANTIBODIES TO HCV NOT DETECTED. DOES NOT EXCLUDE THE POSSIBILITY OF EXPOSURE TO HCV. 12/10/2020 9:09 AM [facility] Ramila Alanis MD LABORATORY Final Result [facility] [address] [place] [address], [place] [phone] from Last 3 Months or Most Recently Relevant to Health Maintenance [place] [address] [place] [address] [facility]
--- OUTSIDE RECORDS SUMMARY | 2024-12-13 17:02 | XMS_ITS ---
Author Organization Unknown Address [address], [place] [id number] Phone Care Team Providers Care Steel Shot Header Operator Name Role Phone Bulmaro Villeda Attending [facility] e Immunization Immunization Date Status Additional Notes Code Code System COVID-19, mRNA, LNP-S, PF, 3 0 mcg/0.3 mL dose 11/27/2020 Completed 208 CVX COVID-19, mRNA, LNP-S, PF, 3 0 mcg/0.3 mL dose 11/06/2020 Completed 208 CVX DTaP, unspecified formulation 07/11/2019 Completed 107 CVX Social History Type Status Start Date End Date Code Code Syst em Smoking History Unknown if ever smoked [id number] Sex Male Hospital Discharge Instructions [...] tem History and physical examination, pre-employment 05/09 [id number] SNOMED-CT Personal Care Team Section Performer Name Performer Role Active Date Inactive Da te
--- OUTSIDE RECORDS SUMMARY | 2024-12-13 17:03 | XMS_ITS | Referral Summary ---
Author Organization [facility] Address [address] [place] [address] Care Team Providers Care Director Online Marketing Name Role Phone Danie Mai MD Primary Care Provider [phone] Source Comments [facility],non-owned Affiliates and Associated Physician Practices is amultiple site organization consisting of ambulatory clinics and hospital sitesin [place], [place], [place] and [place]. This disclosure is being madepursuant to the Care Everywhere program and may not contain all information available regarding this patient. Last updated 18.[facility] Medications Be aware that medications may not [...] of Treatment Not on file Care Teams Director Online Marketing Relationship Specialty Start Date End Date Danie Mai MD [address] [place] [address] PCP - General 10/29/21
--- OUTSIDE RECORDS SUMMARY | 2024-12-13 17:03 | XMS_ITS | Encounter Summary ---
[facility] Organization [facility] Address [address] [place] [address] Phone Care Team Providers Care Experimental Machinist Name Role Phone Ab Erwin MD Primary Care Provider + Álvaro Angelo MD Primary Care Provider [phone] Unknown, Notinfile Primary Care Provider Unavail able Encounter Details Date Type Department Care Team (Late st Contact Info) Description 02/01/2023 Orders Only [facility] [address] [place] [address] Scanning, Provider Social History Tobacco Use Types Packs/Day Years Used Date Smoking Tobacco: Never Assessed Sex and Gender Information Value Date Recorded Sex Assigned at Not on file Legal Sex 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
--- OUTSIDE RECORDS SUMMARY | 2024-12-13 17:03 | XMS_ITS | Clinical Summary ---
Author Organization [facility] Address [address] [place] [address] Care Team Providers Care Tire Service Supervisor Name Role Phone Unknown, Notinfile Primary Care Provider Unavail able Allergies Active Allergy Reactions Criticality Noted Date Comments Biotin Diarrhea Low 03/16/2023 Clarithromycin Hives High 08/09/2012 Flu Vac,Qval 2013-14 (2-49yrs) Flushing (skin) High 03/16/2023 Haemophilus Influenzae Type B Swelling High 2011 Nsaids (Non-Steroidal Anti-Inflammatory Drug) Shortness of breath High 06/12/2013 Other Shortness of breath High 11/18/2013 [place]en Medications ketotifen (ZADITOR) 0.025 % ophthalmic [...] PM CDT): Patient has new job at [employer] did not work out well. He had lasted less than a week. Work environment was full to him terms of lighting experienced as well as a temperament of his immediate supervisor graphite possibly other work personnel. Patient advised me that he may supervisor graphite and other personnel challenges he has had [...] for his tourette's. Will see MD at [facility] for continued testosterone replacement. [...] blurriness.. Assessment & Plan (01/03/2024 5:06 PM INSTRUMENT AND CONTROL SERVICE PERSON): This patient went to visual symptoms treatment center in [facility]. He advised is seen by Dr. Jarrod [...] 12/03/2023 Assessment & Plan (12/03/2023 11:19 AM INSTRUMENT AND CONTROL SERVICE PERSON): Patient has used marijuana as a part of his therapy for Tourette's as well as Nava-Danlos both of these diagnosis or loud under [place] medical marijuana card. Involuntary movements 08/29/2023 Assessment & Plan (12/03/2023 11:16 AM INSTRUMENT AND CONTROL SERVICE PERSON): Patient is here for follow-up. As I [...] . Assessment & Plan (10/14/2023 5:43 PM INSTRUMENT AND CONTROL SERVICE PERSON): Patient is here for follow-up visit . [...] advised me he is used something called [employer] regarding things in controlled. He describes using EMDR THERAPY THAT HAS HELPED HIS EYE MOVEMENTS. After reviewing his video over himself seeing some abnormal movement here in person in off referring him to [facility] neurology Parkinson's and movement disorder division no [...] request of his sleep study done at [facility] years ago. Start no medications patient is [...] it original sleep study was done at [facility] request release of records. 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 Will contact air quality consultant Maribell to inquire about unemployment note. Advised [...] from [employer] knee/leg braces, will refer to [facility] in [place] for evaluation. Discussed proper body mechanics with [...] employer. Patient is a temporary play at [employer] and he wants to go full-time meaning greater than 35 hours a week. However with his condition he is asking for certain accommodations the form from [employer] is call my accommodation. Is concerns that [...] me he can continue to work at [employer] in certain disability papers are filled out [...] fractures . 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 He anticipates going full-time in the next 2 months. His other health problems include mom been D deficiency, low testosterone which is treated through [facility]. He is a large joint 6 ft 4 inch weight 376 lb BMI of 45.77 Vitamin D deficiency 03/16/2023 Assessment & Plan (03/16/2023 6:05 PM CDT): Vitamin-D level was 24. Was done in the past several [facility] date of this lab test could [...] on file Legal Sex Male 7:55 PM INSTRUMENT AND CONTROL SERVICE PERSON Gender Identity Not on file Sexual Orientation [...] patient's age to complete this topic Insurance [facility] Care Teams Tire Service Supervisor Relationship Specialty Start Date End Date Unknown, Notinfile PCP - General 11/21/24
--- OUTSIDE RECORDS SUMMARY | 2024-12-13 17:03 | XMS_ITS | Data Portability ---
Author Organization [place] - [facility], Main Office Address [address] [place] [address] Assessment No assessment recorded. Plan of Treatment Reminders Order Date Submit Date Provider Last Modified By Organization Details Last Modified Time Details Appointments None record ed. Lab None record ed. Referral None record ed. Procedures None record ed. Surgeries None record ed. Imaging None record ed. Medication Orders None record ed. Patient TargetsNo targets recorded. Patient InstructionsNo instructions recorded. Reason for Referral None Reported. Results Created Date Observation Date Name Description Value Unit Range Abnormal Flag Note LastModifiedBy Organization Detail LastModifiedTime 05/04/20 22 05/09/2022 TESTO STERO NE, FREE (DIAL YSIS) AND TOTAL ,MS testosterone , total, MS 204 NG/dL 250-11 00 low Men with clini chapis signi fican t hypog onada l sympt oms and testo stero ne value s repea tedly in the range of the 200-3 00 ng/dL or less, may benef it from testo stero ne treat ment after adequ ate risk and benef its couns eling . For addit ional infor princess rangel e refer to https ://ed ucati on.qu estdi GoSurf Accessoriess. com/f aq/FA Q165 (This link is being provi ded for infor estrada nal/e ducat ional purpo ses only. ) (Note ) This test was devel oped and its viond tical perfo rmanc e fantasma cteri stics have been deter mined by [employer]. It has not been clear ed or appro tej by the FDA. This assay has been valid ated pursu ant to the CLIA regul ation s and is used for clini ken purpo ses. Not Available [facility] [address] [place], [address], 05/09/2022 13:11:23 05/04/20 22 05/09/2022 TESTO STERO NE, FREE (DIAL YSIS) AND TOTAL ,MS testosterone , free 41.5 pg/mL 35.0-1 55.0 (Note ) This test was devel oped and its vinod tical perfo rmanc e fantasma cteri stics have been deter mined by [employer]. It has not been clear ed or appro tej by the FDA. This assay has been valid ated pursu ant to the CLIA regul ation s and is used for clini ken purpo ses. BETI dunn fuscarlos n [address] [facility] [address] [facility] [address] [phone] Alfred rebolledo MD Not Available [facility] [address] [place], [address], 05/09/2022 13:11:23 05/04/20 22 05/09/2022 TSH+F REE T4 TSH 4.58 mIU/L 0.40-4 .50 high Not Available [facility] [address], [address], 05/09/2022 13:11:22 05/04/20 22 05/09/2022 TSH+F REE T4 T4, free 1.0 NG/dL 0.8-1. 8 normal Not Available [facility] [address] [place], [address], 05/09/2022 13:11:22 05/04/20 22 05/09/2022 T3, FREE T3, free 3.8 pg/mL 2.3-4. 2 normal Not Available [facility] [address] [place], [address], 05/09/2022 13:11:21 05/04/20 22 05/09/2022 CBC (INCL UDES DIFF/ PLT) white blood cell count 9.4 thous and/u L 3.8-10 .8 normal Not Available [address], [address], 05/09/2022 13:11:21 05/04/20 22 05/09/2022 CBC (INCL UDES DIFF/ PLT) red blood cell count 5.66 cortney on/uL 4.20-5 .80 normal Not Available [address], [address], 05/09/2022 13:11:21 05/04/20 22 05/09/2022 CBC (INCL UDES DIFF/ PLT) hemoglobin 16.1 g/dL 13.2-1 7.1 normal Not Available [address], [address], 05/09/2022 13:11:21 05/04/20 22 05/09/2022 CBC (INCL UDES DIFF/ PLT) hematocrit 49.7 % 38.5-5 0.0 normal Not Available [address], [address], 05/09/2022 13:11:21 05/04/20 22 05/09/2022 CBC (INCL UDES DIFF/ PLT) MCV 87.8 fL 80.0-1 00.0 normal Not Available [address], [address], 05/09/2022 13:11:21 05/04/20 22 05/09/2022 CBC (INCL UDES DIFF/ PLT) MCH 28.4 pg 27.0-3 3.0 normal Not Available [address], [address], 05/09/2022 13:11:21 05/04/20 22 05/09/2022 CBC (INCL UDES DIFF/ PLT) MCHC 32.4 g/dL 32.0-3 6.0 normal Not Available [address], [place], [address], 05/09/2022 13:11:21 05/04/20 22 05/09/2022 CBC (INCL UDES DIFF/ PLT) RDW 14.1 % 11.0-1 5.0 normal Not Available [address], [address], 05/09/2022 13:11:21 05/04/20 22 05/09/2022 CBC (INCL UDES DIFF/ PLT) platelet count 204 thous and/u L 140-40 0 normal Not Available [facility] [address], [address], 05/09/2022 13:11:21 05/04/20 22 05/09/2022 CBC (INCL UDES DIFF/ PLT) MPV 11.8 fL 7.5-12 .5 normal Not Available [address], [address], 05/09/2022 13:11:21 05/04/20 22 05/09/2022 CBC (INCL UDES DIFF/ PLT) absolute neutrophils 3882 cells /uL 1500-7 800 normal Not Available [address], [address], 05/09/2022 13:11:21 05/04/20 22 05/09/2022 CBC (INCL UDES DIFF/ PLT) absolute lymphocytes 4183 cells /uL 850-39 00 high Not Available [address], [address], 05/09/2022 13:11:21 05/04/20 22 05/09/2022 CBC (INCL UDES DIFF/ PLT) absolute monocytes 743 cells /uL 200-95 0 normal Not Available [address], [address], 05/09/2022 13:11:21 05/04/20 22 05/09/2022 CBC (INCL UDES DIFF/ PLT) absolute eosinophils 526 cells /uL 15-500 high Not Available [address], [address], 05/09/2022 13:11:21 05/04/20 22 05/09/2022 CBC (INCL UDES DIFF/ PLT) absolute basophils 66 cells /uL 0-200 normal Not Available [address], [address], 05/09/2022 13:11:21 05/04/20 22 05/09/2022 CBC (INCL UDES DIFF/ PLT) neutrophils 41.3 % normal Not Available [address], [address], 05/09/2022 13:11:21 05/04/20 22 05/09/2022 CBC (INCL UDES DIFF/ PLT) lymphocytes 44.5 % normal Not Available [address], [address], 05/09/2022 13:11:21 05/04/20 22 05/09/2022 CBC (INCL UDES DIFF/ PLT) monocytes 7.9 % normal Not Available [address], [address], 05/09/2022 13:11:21 05/04/20 22 05/09/2022 CBC (INCL UDES DIFF/ PLT) eosinophils 5.6 % normal Not Available [address], [address], 05/09/2022 13:11:21 05/04/20 22 05/09/2022 CBC (INCL UDES DIFF/ PLT) basophils 0.7 % normal Not Available [address], [address], 05/09/2022 13:11:21 05/04/20 22 05/09/2022 MITOC HONDR IA M2 ANTIB SHADY (IGG) , EIA mitochondria M2 antibody (IgG), EIA <20.0 U Refer ence Range : NEGAT TREMAINE: < OR = 20.0 EQUIV OCAL: 20.1- 24.9 POSIT TREMAINE: > OR = 25.0 Not Available [facility] [address] [place], [address], 05/09/2022 13:11:21 05/04/20 22 05/09/2022 KYLAH, TITER AND PATTE RN KYLAH titer 1:80 titer negati ve abnormal A low level KYLAH titer may be prese nt in pre-c linic al autoi mmune disea ses and davin l indiv idual s. Refer ence Range : <1:40 Negat tremaine 1:40- 1:80 Low Antib shady Level >1:80 [place] alysia Antib shady Level Not Available [facility] [address] [address] , [place], [address], 05/09/2022 13:11:20 05/04/20 22 05/09/2022 KYLAH, TITER AND PATTE RN KYLAH pattern see note Mitot ic, Centr osome Disti nct centr ioles (1-2/ cell) in cytop lasm and at the poles of mitot ic spind le. Patte rn is rare in syste narcisa scler osis, Carolee ud's pheno gamal , and some infec tions (justin l and mycop lasma ). AC-24 : Centr osome Inter natio nal Conse nsus on KYLAH Patte rns https ://do i.org /10.1 515/c clm-2 018-0 052 Not Available [facility] [address] [address] , [place], [address], 05/09/2022 13:11:20 05/04/20 22 05/09/2022 AUTOI MMUNE HEPAT ITIS DIAGN OSTIC PANEL KYLAH screen, ifa positi ve negati ve abnormal KYLAH IFA is a first line scree n for detec ting the prese nce of up to appro ximat naldo 150 autoa ntibo dies in vario us autoi mmune disea ses. A posit tremaine KYLAH IFA resul t is sugge stive of autoi mmune disea se and refle xes to kwabena and j carlos Gross er labor atory testi ng may be consi dered if clini chapis indic ated. For addit ional infor princess rangel e refer to http: //[facility] catcarlos n.Que stDia gnost ics.c om/fa q/FAQ 177 (This link is being provi ded for infor estrada renteria/ educa radha l purpo ses only. ) Not Available [address] [address] [place], [address], 05/09/2022 13:11:20 05/04/20 22 05/09/2022 AUTOI MMUNE HEPAT ITIS DIAGN OSTIC PANEL lkm-1 antibody (IgG) <=20.0 U <=20.0 Refer ence Range : <=20. 0 Negat tremaine 20.1- 24.9 Equiv ocal >=25. 0 Posit tremaine Anti- liver /kidn ey micro somal antib odies (Anti -LKM- 1) were previ ously teste d by indir ect immun ofluo resce nce (IF) using winnie t liver /kidn ey subst rate. Ident ifica tion of a speci fic antib shady targe t as cytoc hrome P450 IID6 has led to the curre nt recom binan t based JHONATHAN . Antib odies to this cytoc hrome are prese nt in appro ximat naldo 70% of patie nts with autoi mmune hepat itis type 2. This antib shady is also prese nt in appro ximat naldo 10% of patie nts with hepat itis C infec tion. Not Available [facility] [address] [address] [place], [address], 05/09/2022 13:11:20 05/04/20 22 05/09/2022 AUTOI MMUNE HEPAT ITIS DIAGN OSTIC PANEL mitochondria l Ab screen negati ve negati ve Not Available [facility] [place] [address] [place] [address], [address], 05/09/2022 13:11:20 05/04/20 22 05/09/2022 AUTOI MMUNE HEPAT ITIS DIAGN OSTIC PANEL actin (smooth muscle) antibody (IgG) <20 U <20 Refer ence Range : <20 U: Negat tremaine >or=2 0 U: Posit tremaine Antib odies recog nizin g actin are the main compo nent of lefty h muscl e antib odies assoc iated with auto- immun e liver disea se. Actin antib odies are found in appro ximat naldo 75% of patie nts with autoi mmune hepat itis (AIH) type 1, appro ximat naldo 65% of patie nts with autoi mmune chola ngiti s, appro ximat naldo 30% of patie nts with prima ry bilia ry cirrh osis and appro ximat naldo 2% of healt hy contr ols. High value s are close ly corre lated with AIH type 1. Not Available [address], [address], 05/09/2022 13:11:20 05/04/20 22 05/09/2022 COMPR EHENS TREMAINE METAB OLIC PANEL glucose 84 mg/dL 65-99 normal Fasti ng refer ence inter musa Not Available [address], [address], 05/09/2022 13:11:19 05/04/20 22 05/09/2022 COMPR EHENS TREMAINE METAB OLIC PANEL urea nitrogen (BUN) 22 mg/dL 7-25 normal Not Available [facility] [address], [address], 05/09/2022 13:11:19 05/04/20 22 05/09/2022 COMPR EHENS TREMAINE METAB OLIC PANEL creatinine 0.91 mg/dL 0.60-1 .35 normal Not Available [facility] [address] [place], [address], 05/09/2022 13:11:19 05/04/20 22 05/09/2022 COMPR EHENS TREMAINE METAB OLIC PANEL eGFR non-afr. malian 110 mL/mi n/1.7 3m2 > or = 60 normal Not Available [address], [address], 05/09/2022 13:11:19 05/04/20 22 05/09/2022 COMPR EHENS TREMAINE METAB OLIC PANEL eGFR 128 mL/mi n/1.7 3m2 > or = 60 normal Not Available [address], [address], 05/09/2022 13:11:19 05/04/20 22 05/09/2022 COMPR EHENS TREMAINE METAB OLIC PANEL BUN/creatini ne ratio not applic able (calc ) 6-22 Not Available [address], [address], 05/09/2022 13:11:19 05/04/20 22 05/09/2022 COMPR EHENS TREMAINE METAB OLIC PANEL sodium 139 mmol/ L 135-14 6 normal Not Available [address], [address], 05/09/2022 13:11:19 05/04/20 22 05/09/2022 COMPR EHENS TREMAINE METAB OLIC PANEL potassium 4.0 mmol/ L 3.5-5. 3 normal Not Available [address], [address], 05/09/2022 13:11:19 05/04/20 22 05/09/2022 COMPR EHENS TREMAINE METAB OLIC PANEL chloride 105 mmol/ L 98-110 normal Not Available [address], [address], 05/09/2022 13:11:19 05/04/20 22 05/09/2022 COMPR EHENS TREMAINE METAB OLIC PANEL carbon dioxide 25 mmol/ L 20-32 normal Not Available [address], [address], 05/09/2022 13:11:19 05/04/20 22 05/09/2022 COMPR EHENS TREMAINE METAB OLIC PANEL calcium 9.4 mg/dL 8.6-10 .3 normal Not Available [address], [address], 05/09/2022 13:11:19 05/04/20 22 05/09/2022 COMPR EHENS TREMAINE METAB OLIC PANEL protein, total 7.2 g/dL 6.1-8. 1 normal Not Available [address], [address], 05/09/2022 13:11:19 05/04/20 22 05/09/2022 COMPR EHENS TREMAINE METAB OLIC PANEL albumin 4.5 g/dL 3.6-5. 1 normal Not Available [address], [address], 05/09/2022 13:11:19 05/04/20 22 05/09/2022 COMPR EHENS TREMAINE METAB OLIC PANEL globulin 2.7 g/dL_ (calc ) 1.9-3. 7 normal Not Available [address], [address], 05/09/2022 13:11:19 05/04/20 22 05/09/2022 COMPR EHENS TREMAINE METAB OLIC PANEL albumin/glob ulin ratio 1.7 (calc ) 1.0-2. 5 normal Not Available [address], [address], 05/09/2022 13:11:19 05/04/20 22 05/09/2022 COMPR EHENS TREMAINE METAB OLIC PANEL bilirubin, total 0.3 mg/dL 0.2-1. 2 normal Not Available [address], [address], 05/09/2022 13:11:19 05/04/20 22 05/09/2022 COMPR EHENS TREMAINE METAB OLIC PANEL alkaline phosphatase 106 U/L 36-130 normal Not Available [address], [address], 05/09/2022 13:11:19 05/04/20 22 05/09/2022 COMPR EHENS TREMAINE METAB OLIC PANEL AST 30 U/L 10-40 normal Not Available [address], [address], 05/09/2022 13:11:19 05/04/20 22 05/09/2022 COMPR EHENS TREMAINE METAB OLIC PANEL ALT 54 U/L 9-46 high Not Available [address], [address], 05/09/2022 13:11:19 05/04/20 22 05/09/2022 IRON AND TOTAL IRON CORNELL NG CAPAC ITY iron, total 56 mcg/d L 50-180 normal Not Available [address], [address], 05/09/2022 13:11:19 05/04/20 22 05/09/2022 IRON AND TOTAL IRON CORNELL NG CAPAC ITY iron binding capacity 389 mcg/d L_(ca lc) 250-42 5 normal Not Available [address], [address], 05/09/2022 13:11:19 05/04/20 22 05/09/2022 IRON AND TOTAL IRON CORNELL NG CAPAC ITY % saturation 14 %_(ca lc) 20-48 low Not Available [address], [address], 05/09/2022 13:11:19 05/04/20 22 05/09/2022 GGT GGT 46 U/L 3-90 normal Not Available [address] [address] [place], [address], 05/09/2022 13:11:18 05/04/20 22 05/09/2022 HEPAT ITIS PANEL , ACUTE W/REF ZAID TO CONFI RMATI ON hepatitis A IgM non-re active non-re active normal For addit ional infor princess rangel e refer to http: //[facility] landy lopez stdia gnost ics.c om/fa q/FAQ (This link is being provi ded for infor estrada renteria/ ambrosio kohli purpo ses only. ) Not Available [address] [address] [place], [address], 05/09/2022 13:11:17 05/04/20 22 05/09/2022 HEPAT ITIS PANEL , ACUTE W/REF ZAID TO CONFI RMATI ON hepatitis B surface antigen non-re active non-re active normal Not Available [address] [address] [place], [address], 05/09/2022 13:11:17 05/04/20 22 05/09/2022 HEPAT ITIS PANEL , ACUTE W/REF ZAID TO CONFI RMATI ON hepatitis B core antibody (IgM) non-re active non-re active normal Not Available [address] [address] [place], [address], 05/09/2022 13:11:17 05/04/20 22 05/09/2022 HEPAT ITIS PANEL , ACUTE W/REF ZAID TO CONFI RMATI ON hepatitis C antibody non-re active non-re active normal Not Available [address] [address] [place], [address], 05/09/2022 13:11:17 05/04/20 22 05/09/2022 HEPAT ITIS PANEL , ACUTE W/REF ZAID TO CONFI RMATI ON index 0.01 <1.00 normal HCV antib shady was non-r eacti ve. There is no labor atory evide nce of HCV infec tion. In most cases , no furth er actio n is requi red. Howev er, if recen t HCV expos ure is suspe cted, a test for HCV RNA (test code 84907 ) is sugge sted. For addit ional infor matcarlos n pleas e refer to http: //[facility] catcarlos n.que stdia gnost ics.c om/fa q/FAQ 22v1 (This link is being provi ded for infor matcarlos nal/ educa radha l purpo ses only. ) Not Available [address] [address] [address] , [place], [address], 05/09/2022 13:11:17 06/05/20 22 04/23/2020 home sleep study No observ ation record ed. [id number] Not Available 01/13/2023 05:06:44 08/04/20 22 07/31/2022 polys omnog mitzi , diagn ostic (PROC ) No observ ation record ed. [id number] [facility] [address] [place], [address], 01/13/2023 05:06:44 08/04/20 22 07/31/2022 multi ple sleep laten cy No observ ation record ed. [id number] [facility] [address] [place], [address], 01/13/2023 05:06:44 Result Notes None recorded. Problems Name Problem SNOMED Code Status Onset Date Resolution Date Notes Provider Name and Address Organization Details Recorded Time Acquired hypothyroi dism 533058388 Active 2021 Not Available [facility] 3 04:50:08 Anti-nucle ar factor detected 475437994 Active 2021 Not Available [facility] 3 04:50:08 Hyperprola ctinemia 421219377 Active 2021 Not Available [facility] 3 04:50:08 Gastroesop hageal reflux disease without esophagiti s 652141157 Active 2021 Not Available [facility] 3 04:50:08 Hypothyroi dism 25013189 Active 2021 Not Available [facility] 3 04:50:08 Screening for malignant neoplasm of colon done 4197939717682 01 Active 2021 Not Available [facility] 3 04:50:09 Male hypogonadi sm 90066869 Active 2021 Not Available [facility] 3 04:50:09 Essential hypertensi on 57654980 Active 2021 Not Available [facility] 3 04:50:09 Liver enzymes level above reference range 437194125 Active 2021 Not Available [facility] 3 04:50:09 Sleep apnea 13099024 Active 2021 Not Available [facility] 3 04:50:09 Notes:Medical History: Right hearing loss Bilateral tinnitus Eosinophils 526/uL Rhinitis Orthognathia Bruxism Obesity with mild OSAHS, AHI = 12, 04/23/20, on autoCPAP c/o [facility] KYLAH 1:80 Melly's hypothyroidism Hypertension LISSETH Transaminitis Hyperprolactinemia Hypogonadism Low back pain Procedure History: T&A 1993 Bilateral ear tube insertion 1993 Nasoseptal surgery 2010 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 Procedures Surgical History Date Name Laterality Status Provider Name and Address Organization Details Recorded Time septodermoplasty completed Not Available [facility] 01/13/2023 04:41:40 Ear Tube Placement completed Not Available [facility] 01/13/2023 04:41:40 Imaging Results Imaging Date Name Status LastModified by Organiz ation Details LastModified Time 07/31/2022 polysomnography , diagnostic (PROC) completed [id number] [facility] [place] [address] [place], [address], 01/13/2023 05:06:44 07/31/2022 multiple sleep latency completed [id number] [facility] [place] [address] [place], [address], 01/13/2023 05:06:44 04/23/2020 home sleep study completed [id number] Information not available 01/13/2023 05:06:44 Procedure Notes None recorded. Medical Equipment None Reported. Allergies Allergen ID Allergen Name Allergen Category Reaction Reaction Severity Criticality Documentation Date Start Date Code Code System Note Provider Name and Address Organization Details Recorded Time 8651 Biaxin medicatio n hives Not available Not available 01/13/2023 9 RxNorm Not Available [facility] 05:06:03 Medications Name Sig Start Date Stop Date Status Note LastModified by Organization Details LastModified Time BD Luer-Nick Syringe 3 mL 23 x 1 12/29 completed Not Available Not Available Not Available fluoxetin e 40 mg capsule 01/03 completed Not Available Not Available Not Available clonidine HCl 0.1 mg tablet 02/24 completed Not Available Not Available Not Available ibuprofen 800 mg tablet 01/03 completed Not Available Not Available Not Available naltrexon e 50 mg tablet 02/24 completed Not Available Not Available Not Available hydroxyzi ne pamoate 50 mg capsule TAKE 1 CAPSULE BY MOUTH THREE TIMES DAILY NEEDED 08/06 completed Not Available Not Available Not Available amlodipin e 5 mg tablet 07/30 completed Not Available Not Available Not Available olanzapin e 2.5 mg tablet 02/24 completed Not Available Not Available Not Available bupropion HCl SR 100 mg tablet,12 hr sustained -release 02/24 completed Not Available Not Available Not Available ziprasido ne 20 mg capsule 02/24 completed Not Available Not Available Not Available famotidin e 20 mg tablet 08/06 completed Not Available Not Available Not Available temazepam 15 mg capsule 02/24 completed Not Available Not Available Not Available trazodone 100 mg tablet 01/03 completed Not Available Not Available Not Available dexametha sone 1 mg tablet Take 1 tablet as needed by oral route at bedtime for 1 day. 04/21 completed take dexa tablet at 10 pm night before 8 am cortisol level drawn Not Available Not Available Not Available lithium carbonate 600 mg capsule 01/03 completed Not Available Not Available Not Available amlodipin e 10 mg tablet Take 1 tablet every day by oral route for 90 days. active Not Available Not Available No t Available lithium carbonate 300 mg capsule active Not Available Not Available Not Available benzonata te 100 mg capsule TAKE 1 CAPSULE BY MOUTH EVERY 8 HOURS NEEDED 01/03 completed Not Available Not Available Not Available doxycycli ne monohydra te 100 mg capsule 01/03 completed Not Available Not Available Not Available cyanocoba shereen (vit B-12) 1,000 mcg/mL injection solution INJECT 1 ML SUBCUTAN EOUSLY ONCE A WEEK IN THE MORNING 01/21 completed Not Available Not Available Not Available buspirone 30 mg tablet 01/21 completed Not Available Not Available Not Available fluoxetin e 10 mg capsule 02/24 completed Not Available Not Available Not Available buspirone 7.5 mg tablet 02/24 completed Not Available Not Available Not Available insulin syringe U-100 with needle 1 mL 31 gauge x 5/16 USE WITH B12 INJECTIO NS ONCE WEEKLY 01/21 completed Not Available Not Available Not Available hydrochlo rothiazid e 25 mg tablet Take 1 tablet every day by oral route in the morning for 90 days. 06/08 completed Not Available Not Available Not Available zolpidem 5 mg tablet 02/24 completed Not Available Not Available Not Available Unithroid 25 mcg tablet Take 1 tablet every day by oral route for 30 days. 08/06 completed Not Available Not Available Not Available ziprasido ne 40 mg capsule 02/24 completed Not Available Not Available Not Available testoster one enanthate 200 mg/mL intramusc ular oil Inject 1 mL every week by intramus cular route in the morning for 90 days. 12/29 completed Not Available Not Available Not Available mirtazapi ne 15 mg tablet 02/24 completed Not Available Not Available Not Available testoster one cypionate 200 mg/mL intramusc ular oil Inject 1 mL every week by intramus cular route in the morning for 30 days. 01/03 completed Not Available Not Available Not Available dexametha sone 0.5 mg tablet 04/21 completed Not Available Not Available Not Available ziprasido ne 60 mg capsule 02/24 completed Not Available Not Available Not Available fluoxetin e 20 mg capsule active Not Available Not Available Not Available fluticaso ne propionat e 50 mcg/actua tion nasal spray,mariel pension 01/03 completed Not Available Not Available Not Available insulin syringe U-100 with needle 0.5 mL 31 gauge x 03/30 completed Not Available Not Available Not Available lamotrigi ne 100 mg tablet 02/24 completed Not Available Not Available Not Available buspirone 15 mg tablet 02/24 completed Not Available Not Available Not Available hydroxyzi ne pamoate 25 mg capsule 01/03 completed Not Available Not Available Not Available escitalop danelle 20 mg tablet 02/24 completed Not Available Not Available Not Available bupropion HCl XL 150 mg 24 hr tablet, extended release active Not Available Not Available Not Available escitalop danelle 5 mg tablet 02/24 completed Not Available Not Available Not Available metoprolo l tartrate 25 mg tablet Take 1 tablet twice a day by oral route before meals for 90 days. active Not Available Not Available No t Available topiramat e 50 mg tablet 02/24 completed Not Available Not Available Not Available Golytely 236 gram-22.7 4 gram-6.74 gram-5.86 gram oral solution as directed 06/01 completed Not Available Not Available Not Available lurasidon e 80 mg tablet Take 1 tablet every day by oral route. 06/08 completed Not Available Not Available Not Available testoster one 20.25 mg/1.25 gram per pump act.(1.62 %) transderm al gel Apply 2 pumps every day by transder mal route for 30 days. 01/29 completed Not Available Not Available Not Available Androderm 2 mg/24 hour transderm al 24 hour patch Apply by transder mal route for 30 days. active Not Available Not Available No t Available Latuda 60 mg tablet 02/24 completed Not Available Not Available Not Available Xyosted 50 mg/0.5 mL subcutane ous auto-inje ctor Inject 150 mg every week by subcutan eous route in the morning for 90 days. 12/29 completed Not Available Not Available Not Available Xyosted 100 mg/0.5 mL subcutane ous auto-inje ctor Inject 150 mg every week by subcutan eous route in the morning for 30 days. 12/29 completed Not Available Not Available Not Available Jatenzo 237 mg capsule Take 1 capsule twice a day by oral route before meals for 90 days. active Not Available Not Available No t Available Vitals Date Recorded Body mass index (BMI) Body height Oxygen saturation Oxygen saturation in Arterial blood by Pulse oximetry Heart rate Body temperature Body weight Systolic blood pressure Diastolic blood pressure Provider Name and Address Organization Details Last Updated DateTime 2 44.8 kg/m2 193.04 cm 98 % 98 % 86 /min 97.9 [degF] 768659. 99 g 148 mm[Hg] 94 mm[Hg] Not Available [facility] 04:41:59 Date Recorded Body mass index (BMI) Heart rate Body height Oxygen saturation Oxygen saturation in Arterial blood by Pulse oximetry Heart rate Respiratory rate Body temperature Body weight Systolic blood pressure Diastolic blood pressure Provider Name and Address Organization Details Last Updated DateTime 2 45.5 kg/m2 82 /min 193.04 cm 97 % 97 % 95 /min 15 /min 97.7 [degF] 127977. 55 g 160 mm[Hg] 85 mm[Hg] Not Available [facility] 04:41:59 Date Recorded Body mass index (BMI) Heart rate Body height Oxygen saturation Oxygen saturation in Arterial blood by Pulse oximetry Heart rate Respiratory rate Body temperature Body weight Systolic blood pressure Diastolic blood pressure Provider Name and Address Organization Details Last Updated DateTime 2 45.1 kg/m2 88 /min 193.04 cm 98 % 98 % 88 /min 16 /min 98.3 [degF] 592182. 9 g 144 mm[Hg] 90 mm[Hg] Not Available [facility] 3 04:41:59 Date Recorded Body mass index (BMI) Body height Heart rate Body temperature Body weight Systolic blood pressure Diastolic blood pressure Provider Name and Address Organization Details Last Updated DateTime 2 44.6 kg/m2 193.04 cm 78 /min 97.7 [degF] 956218. 53 g 158 mm[Hg] 98 mm[Hg] Not Available [facility] 3 04:41:59 Date Recorded Heart rate Body temperature Systolic blood pressure Diastolic blood pressure Provider Name and Address Organization Details Last Updated DateTime 06/08/2022 82 /min 96.9 [degF] 144 mm[Hg] 80 mm[Hg] Not Available [facility] 04:41:59 Social History Question Answer Notes LastModified by Organizat ion Details LastModified Time Tobacco Smoking Status Never Smoker Not Available Critical access hospital 01/13/2023 04:05:28 Do You Have An Advance Directive? No MIGRATION.[id number] 6449 Information not available 01/13/2023 What Is Your Level Of Alcohol Consumption? Occasional MIGRATION.943465 6180 Information not available 01/13/2023 What Is Your Level Of Caffeine Consumption? Heavy MIGRATION.176697 8621 Information not available 01/13/2023 In The 14 Days Before Symptom Onset, Have You Had Close Contact With A Laboratory-confirm ed COVID-19 While That Case Was Ill? No MIGRATION.107464 2183 Information not available 01/13/2023 In The 14 Days Before Symptom Onset, Have You Had Close Contact With A Person Who Is Under Investigation For COVID-19 While That Person Was Ill? No MIGRATION.387393 6390 Information not available 01/13/2023 What Type Of Diet Are You Following? REGULAR MIGRATION.716831 0932 Information not available 01/13/2023 Which Illicit Or Recreational Drugs Have You Used? Marijuana MIGRATION.498515 4248 Information not available 01/13/2023 What Is The Highest Grade Or Level Of School You Have Completed Or The Highest Degree You Have Received? [id number] MIGRATION.626228 1100 Information not available 01/13/2023 Do You Have An Electrostatic Air Filter? No MIGRATION.807820 2049 Information not available 01/13/2023 Are There Any Guns Present In Your Home? No MIGRATION.976316 6596 Information not available 01/13/2023 Do You Have A Humidifier? No MIGRATION.021547 0414 Information not available 01/13/2023 Do You Have A Medical Power Of Awake Overnight Monitor? No MIGRATION.369918 7649 Information not available 01/13/2023 Do You Have Moisture Problems In Your Home? No MIGRATION.286512 2882 Information not available 01/13/2023 Do You Have Any Pets? Yes MIGRATION.716217 2911 Information not available 01/13/2023 What Is Your Relationship Status? Single MIGRATION.250621 5411 Information not available 01/13/2023 Do You Use Your Seat Belt Or Car Seat Routinely? Yes MIGRATION.051588 7085 Information not available 01/13/2023 Do You Have Smoke And Carbon Monoxide Detectors In Your Home? Yes MIGRATION.961377 3766 Information not available 01/13/2023 Are You Passively Exposed To Smoke? No MIGRATION.928078 8077 Information not available 01/13/2023 Do You Feel Stressed (tense, Restless, Nervous, Or Anxious, Or Unable To Sleep At Night)? ES6195-4 MIGRATION.096207 1691 Information not available 01/13/2023 Do You Use Any Illicit Or Recreational Drugs? Yes MIGRATION.032987 9037 Information not available 01/13/2023 Do You Use Sunscreen Routinely? Yes MIGRATION.291255 2209 Information not available 01/13/2023 Have You Recently Traveled Abroad? No MIGRATION.492129 4889 Information not available 01/13/2023 Have You Used IV Drugs? No MIGRATION.488913 3424 Information not available 01/13/2023 Do You Have Any Dietary Restrictions? No MIGRATION.847190 8903 Information not available 01/13/2023 Do You Or Have You Ever Used Any Other Forms Of Tobacco Or Nicotine? No MIGRATION.284558 6344 Information not available 01/13/2023 Sex: Male Functional Status None recorded. Mental Status None recorded. Family History Relationship Description Onset Age of this Age Resolved Age Notes LastModified by Organization Details LastModified Time Father Atrial fibrillation MIGRATION.935 [id number] Not available 01/13/2023 04:41:41 Father Heart disease MIGRATION.946 [id number] Not available 01/13/2023 04:41:42 Father Rheumatoid arthritis MIGRATION.919 [id number] Not available 01/13/2023 04:41:42 Father Obstructive sleep apnea syndrome MIGRATION.366 0447404 Not available 01/13/2023 04:41:42 Maternal Grandmother Malignant tumor of lung MIGRATION.837 [id number] Not available 01/13/2023 04:41:42 Maternal Grandmother Chronic obstructive pulmonary disease MIGRATION.288 [id number] Not available 01/13/2023 04:41:42 Maternal Grandfather Malignant tumor of lung MIGRATION.446 2770024 Not available 01/13/2023 04:41:42 Maternal Grandfather Chronic obstructive pulmonary disease MIGRATION.591 8223698 Not available 01/13/2023 04:41:42 Paternal Grandmother Malignant tumor of lung MIGRATION.356 1768079 Not available 01/13/2023 04:41:42 Paternal Grandmother Chronic obstructive pulmonary disease MIGRATION.199 0144776 Not available 01/13/2023 04:41:42 Paternal Grandfather Heart disease MIGRATION.100 7962632 Not available 01/13/2023 04:41:42 Mother Bipolar disorder MIGRATION.843 5563059 Not available 01/13/2023 04:41:42 Mother Hypertensive disorder MIGRATION.675 9082392 Not available 01/13/2023 04:41:42 Maternal Uncle Obstructive sleep apnea syndrome MIGRATION.098 [id number] Not available 01/13/2023 04:41:42 Medical History Condition Response Low Testosterone Y HYPERTENSION Y Past Encounters Encounter ID Performer Location Encounter Start Date Encounter Closed Date Diagnosis/Indication Diagnosis SNOMED-CT Code Diagnosis ICD10 Code Diagnosis Note [id number] [facility] [place] [address] [place] [address] 06/17/2021 00:00:00 06/17/2021 16:09:08 [id number] [facility] [place] [address] [place] [address] 12/29/2021 00:00:00 12/29/2021 11:38:23 [id number] _ATHENA_M IGRATION_ DEFAULT_1 _1 , 01/21/2022 00:00:00 01/21/2022 16:06:00 [id number] [facility] [address] [place] [address] 06/08/2022 00:00:00 06/08/2022 15:23:03 [id number] [facility] [place] [address] [place] [address] 06/08/2022 00:00:00 06/08/2022 20:05:27 [id number] [facility] [place] [address] [address] 08/06/2022 00:00:00 08/06/2022 16:04:29 [id number] [facility] [place] [address] [place] [address] 08/25/2022 00:00:00 08/25/2022 17:59:24 Health Concerns Section Related Observation LastModified by Organization Isabel gerber LastModified Time None Recorded Concern Status LastModified by Organization Details LastModified Time None Recorded Advance Directives Directive N: Payers None recorded.
--- OUTSIDE RECORDS SUMMARY | 2024-12-13 17:03 | XMS_ITS | Patient Health Summary ---
Author Organization [facility] Address [address] [place] [address] Care Team Providers Care Public Housing Manager Name Role Phone Danie Mai MD Primary Care Provider [phone] Note from [facility],non-owned Affiliates and Associated Physician Practices is amultiple site organization consisting of ambulatory clinics and hospital sitesin [place], [place], [place]. This disclosure is being madepursuant to the Care Everywhere program and may not contain all information available regarding this patient. Last updated 18.[facility] Medications Be aware that medications may not [...] Sexual Orientation Not on file Care Teams Public Housing Manager Relationship Specialty Start Date End Date Danie Mai MD [address] [place] [address] PCP - General 10/29/21
--- OUTSIDE RECORDS SUMMARY | 2024-12-13 17:03 | XMS_ITS | Clinical Summary ---
Author Organization [facility] Address [address] [place] [address] Care Team Providers Care Golf Teacher Name Role Phone Danie Mai MD Primary Care Provider [phone] Source Comments [facility],non-owned Affiliates and Associated Physician Practices is amultiple site organization consisting of ambulatory clinics and hospital sitesin [place], [place], [place] and [place]. This disclosure is being madepursuant to the Care Everywhere program and may not contain all information available regarding this patient. Last updated 18.[facility] Medications Be aware that medications may not [...] age to complete this topic Care Teams Golf Teacher Relationship Specialty Start Date End Date Danie Mai MD [address] [place] [address] PCP - General 10/29/21
--- OUTSIDE RECORDS SUMMARY | 2024-12-13 17:03 | XMS_ITS | Encounter Summary ---
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
--- OUTSIDE RECORDS SUMMARY | 2024-12-13 17:03 | XMS_ITS | Encounter Summary ---
Author Organization [facility] Address [address] [place] [address] Care Team Providers Care Service Captain Name Role Phone Danie Mai MD Primary Care Provider [phone] Encounter Details Date Type Department Care Team (Late st Contact Info) Description 2021 Telephone [facility] [address] [place] [address] Javier Lorenzo MD [address] DIV OF [place]ERGY/[place] [address] Social History Tobacco Use Types Packs/Day Years Used Date Smoking Tobacco: Never Assessed Sex and Gender Information Value Date Recorded Sex Assigned at Not on file Gender Identity Not on file Sexual Orientation Not on file documented as of this encounter Plan of Treatment Not on file documented as of this encounter Visit Diagnoses Not on filedocumented in this encounter Care Teams Service Captain Relationship Specialty Start Date End Date Danie Mai MD [address] [place] [address] PCP - General 10/29/21 documented as of this encounter
--- OUTSIDE RECORDS SUMMARY | 2024-12-13 17:03 | XMS_ITS | Referral Summary ---
[facility] Address [address] [place] [address] Care Team Providers Care Sustainability Coach Name Role Phone Unknown, Notinfile Primary Care Provider Unavail able Allergies Active Allergy Reactions Criticality Noted Date Comments Biotin Diarrhea Low 03/16/2023 Clarithromycin Hives High 08/09/2012 Flu Vac,Qval 2013-14 (2-49yrs) Flushing (skin) High 03/16/2023 Haemophilus Influenzae Type B Swelling High 2011 Nsaids (Non-Steroidal Anti-Inflammatory Drug) Shortness of breath High 06/12/2013 Other Shortness of breath High 11/18/2013 Zavalla Kristen Medications ketotifen (ZADITOR) 0.025 % ophthalmic [...] PM CDT): Patient has new job at [employer] did not work out well. He had lasted less than a week. 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 Will see MD at [facility] for continued testosterone replacement. Assessment & Plan [...] blurriness.. Assessment & Plan (01/03/2024 5:06 PM PUTTY MIXER): This patient went to visual symptoms treatment center in [facility]. He advised is seen by Dr. 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 Involuntary movements 08/29/2023 Assessment & Plan (12/03/2023 11:16 AM PUTTY MIXER): Patient is here for follow-up. As I [...] . Assessment & Plan (10/14/2023 5:43 PM PUTTY MIXER): Patient is here for follow-up visit . [...] advised me he is used something called Futon regarding things in controlled. He describes using EMDR THERAPY THAT HAS HELPED HIS EYE MOVEMENTS. After reviewing his video over himself seeing some abnormal movement here in person in off referring him to [facility] neurology Parkinson's and movement disorder division no [...] request of his sleep study done at [facility] years ago. Start no medications patient [...] it original sleep study was done at [facility] request release of records. 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 Will contact clinical quality assurance specialist Maribell to inquire about unemployment note. Advised [...] from [employer] knee/leg braces, will refer to [facility] clinic in [place] for evaluation. Discussed proper body mechanics with [...] employer. Patient is a temporary play at [employer] and he wants to go full-time meaning greater than 35 hours a week. However with his condition he is asking for certain accommodations the form from [employer] is call my accommodation. Is concerns that [...] me he can continue to work at [employer] in certain disability papers are filled out [...] fractures . 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 He anticipates going full-time in the next 2 months. His other health problems include mom been D deficiency, low testosterone which is treated through [facility]. He is a large joint 6 ft 4 inch weight 376 lb BMI of 45.77 Vitamin D deficiency 03/16/2023 Assessment & Plan (03/16/2023 6:05 PM CDT): Vitamin-D level was 24. 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
[2024-12-13 17:09] LABS: Troponin I < 0.012 ng/mL (0.000-0.034)
[2024-12-13 17:15] LABS: Ethanol < 10 mg/dL (<10)
== END 2024-12-13 19:16 | disposition home or self-care (01) ==
PROVIDERS: Emergency Medicine; Emergency Provider Emergency Medicine; PCP Hospitalist
DX: R07.89 Other chest pain (principal); F95.2 Tourette's disorder; Q79.60 Ehlers-Danlos syndrome, unspecified; R94.31 Abnormal electrocardiogram [ECG] [EKG]; R00.0 Tachycardia, unspecified
CPT/HCPCS: 36415; 71046; 71275; 74174; 80053; 82077; 83690; 84484; 85025; 85610; 85730; 93005; 99284; Q9967